=== PATIENT | female | born 1960 | race Caucasian/White ===

== ENCOUNTER 2016-10-01 03:49 | Inpatient (IN) | payer MEDICAID ==
[2016-08-31 13:04] VITALS: Ht 157.5 cm; Wt 59.0 kg
[~2016-10-01] VITALS: Ht 157.5 cm; Wt 59.0 kg
[~2016-10-01 03:49] MED LIST: ASPI-1063 PO; ATEN50TA PO; CYAN10009 PO; FENO160 PO; FERR159T2 PO; FURO-150 PO; FURO40TA5 PO; GLIP10TA11 PO; GLIP10TA74 PO; GLU850 PO; KAY15 PO; METO-304 PO; MULT PO; OMEP20CA4 PO; OMEP40CA PO; OMEP40CA33 PO; POTA8TAB4 PO; PRO40 PO; PROP10TA10 PO; SPIR100T24 PO; SPIR25TA PO; SUCR1TAB78 PO
[2016-10-01 04:05] VITALS: BP 121/71; PULSE 92; RESP 18; TEMP 98.7; O2SAT 100
[2016-10-01 04:20] LABS: BASOPHILS % (AUTO) 0.5 % (0.0-2.0); EOSINOPHILS # (AUTO) 0.2 K/uL (0.0-0.4); EOSINOPHILS % (AUTO) 2.8 % (0.0-4.0); HEMATOCRIT 31.1 % (36-48); HEMOGLOBIN 10.4 g/dL (12.0-16.0); LYMPHOCYTES # (AUTO) 1.2 K/uL (1.0-5.5); LYMPHOCYTES % (AUTO) 18.3 % (20.5-51.5); MEAN CORPUSCULAR HEMOGLOBIN 31 pg (27-31); MEAN CORPUSCULAR HGB CONC 33 % (32-36); MEAN CORPUSCULAR VOLUME 94 fL (79.0-98.0); MONOCYTES # (AUTO) 0.5 K/uL (0.0-1.0); MONOCYTES % (AUTO) 8.4 % (1.7-9.3); NEUTROPHILS # (AUTO) 4.4 K/uL (1.8-7.7); RED BLOOD CELL COUNT(AUTO) 3.31 MIL/uL (4.2-6.2); RED CELL DISTRIBUTION WIDTH 15.8 % (9.0-15.0); WHITE BLOOD COUNT (AUTO) 6.3 K/uL (4.8-10.8)
[2016-10-01 04:35] LABS: CALCIUM 8.9 mg/dL (8.4-11.0); CREATININE 2.62 mg/dL (0.55-1.30); INR 1.1 (0.8-1.2); PROTHROMBIN TIME 12.1 SECS (9.5-12.5)
[2016-10-01 04:40] LABS: ALBUMIN 2.1 g/dL (3.4-4.8); TOTAL BILIRUBIN 0.9 mg/dL (0.0-1.0); TOTAL PROTEIN, SERUM 6.2 g/dL (6.4-8.3)
[2016-10-01 05:01] LABS: POTASSIUM 7.3 mmol/L (3.5-5.1)
[2016-10-01 05:08] LABS: PLATELET COUNT (AUTO) 72 K/uL (130-430)
[2016-10-01] MEDS ORDERED: VANC250C11 IV (05:16)
[2016-10-01 06:00] LABS: BILIRUBIN,URINE 1+ (NEGATIVE); BLOOD, URINE 3+ (NEGATIVE); CLARITY/URINE CLOUDY (CLEAR); COLOR,URINE YELLOW (YELLOW); GLUCOSE,URINE NEGATIVE (NEGATIVE); KETONES,URINE NEGATIVE (NEGATIVE); LEUKOCYTE ESTERASE ,URINE 2+ (NEGATIVE); NITRITE, URINE NEGATIVE (NEGATIVE); PH,URINE 7.5 (5.0-8.0); PROTEIN URINE NEGATIVE (NEGATIVE); UROBILINOGEN,URINE 0.2 (0.2-1.0)
[2016-10-01 06:10] LABS: BACTERIA,URINE MODERATE /HPF (None Seen); MUCUS,URINE None Seen /LPF (None Seen)
[2016-10-01] MEDS ORDERED: SODIUM POLYSTYRENE SULFONATE 15 GM/60 ML UDBTL PO ONE (07:45)
[2016-10-01] MEDS ORDERED: DEXTROSE 50% JECT 50 ML DISP.SYRIN IVP ONE (07:45)
[2016-10-01] MEDS ORDERED: INSULIN REGULAR, HUMAN 100 UNITS/ML, 10 ML VIAL SUBCUT ONE (07:45)
[2016-10-01] MEDS ORDERED: COMMUNICATION ORDER XX ONE ×2 (08:00→17:00)
[2016-10-01] MEDS ORDERED: CALCIUM CHLORIDE 1 GM in NS 100 ML IV ONE (08:30)
[2016-10-01] MEDS: LACTULOSE 20 GM/30 ML UDC PO SCH ×4 (09:30→21:27)
[2016-10-01] MEDS: FUROSEMIDE 40 MG/4 ML VIAL IVP SCH (09:31)
[2016-10-01] MEDS: METOPROLOL SUCCINATE 25 MG TAB.SR.24H (TOPROL XL) PO SCH (09:31)
[2016-10-01 12:00] VITALS: BP 127/73; PULSE 91; RESP 18; TEMP 97.2; O2SAT 100
[2016-10-01 15:53] LABS: CALCIUM 9.3 mg/dL (8.4-11.0); CREATININE 2.82 mg/dL (0.55-1.30); POTASSIUM 4.9 mmol/L (3.5-5.1)
[2016-10-01] MEDS: NACL 0.9% 1,000 ML IV SCH (15:56)
[2016-10-01 16:00] VITALS: BP 118/70; PULSE 50; RESP 18; TEMP 97.2; O2SAT 92
[2016-10-01 16:33] LABS: BLOOD GAS PH 7.204 (7.350-7.450)
[2016-10-01 16:34] LABS: ABG TOTAL HEMOGLOBIN 10.9 G/dL (12.0-18.0); BLOOD GAS BASE EXCESS -19.9 mmol/L (-3.0-3.0); BLOOD GAS COHb% 0.3 % (0.5-1.5); BLOOD GAS HHB 2.2 % (0.0-6.0); BLOOD O2Hb% 97.3 % (94.0-97.0)
[2016-10-01] MEDS: SODIUM BICARBONATE 8.4% JECT 50 MEQ/50 ML SYRINGE IVP SCH ×2 (17:20→21:27)
[2016-10-01 20:00] VITALS: BP 116/63; PULSE 99; RESP 20; TEMP 97.1; O2SAT 99
[2016-10-02 03:45] VITALS: BP 96/59; PULSE 104; RESP 16; TEMP 97.4; O2SAT 100
[2016-10-02 03:49] VITALS: BP 95/55; PULSE 105; RESP 18; TEMP 97.4; O2SAT 93
[2016-10-02 06:35] LABS: INR 1.2 (0.8-1.2); PROTHROMBIN TIME 13.3 SECS (9.5-12.5)
[2016-10-02 06:45] LABS: BASOPHILS % (AUTO) 0.3 % (0.0-2.0); EOSINOPHILS # (AUTO) 0.2 K/uL (0.0-0.4); EOSINOPHILS % (AUTO) 3.9 % (0.0-4.0); HEMATOCRIT 25.1 % (36-48); HEMOGLOBIN 8.4 g/dL (12.0-16.0); LYMPHOCYTES # (AUTO) 1.1 K/uL (1.0-5.5); LYMPHOCYTES % (AUTO) 20.7 % (20.5-51.5); MEAN CORPUSCULAR HEMOGLOBIN 31 pg (27-31); MEAN CORPUSCULAR HGB CONC 34 % (32-36); MEAN CORPUSCULAR VOLUME 93 fL (79.0-98.0); MONOCYTES # (AUTO) 0.6 K/uL (0.0-1.0); NEUTROPHILS # (AUTO) 3.5 K/uL (1.8-7.7); NEUTROPHILS % (AUTO) 64.1 % (40.0-70.0); RED BLOOD CELL COUNT(AUTO) 2.68 MIL/uL (4.2-6.2); RED CELL DISTRIBUTION WIDTH 15.4 % (9.0-15.0); WHITE BLOOD COUNT (AUTO) 5.4 K/uL (4.8-10.8)
[2016-10-02 07:02] LABS: ALBUMIN 1.8 g/dL (3.4-4.8); CALCIUM 8.7 mg/dL (8.4-11.0); CREATININE 2.63 mg/dL (0.55-1.30); POTASSIUM 4.5 mmol/L (3.5-5.1); TOTAL BILIRUBIN 1.4 mg/dL (0.0-1.0); TOTAL PROTEIN, SERUM 5.1 g/dL (6.4-8.3)
[2016-10-02] MEDS: NACL 0.9% 1,000 ML IV SCH (07:51)
[2016-10-02 08:00] VITALS: BP 94/62; PULSE 102; RESP 18; TEMP 99.1; O2SAT 95
[2016-10-02] MEDS: METOPROLOL SUCCINATE 25 MG TAB.SR.24H (TOPROL XL) PO SCH (09:00)
[2016-10-02] MEDS: FUROSEMIDE 40 MG/4 ML VIAL IVP SCH (09:00)
[2016-10-02] MEDS: LACTULOSE 20 GM/30 ML UDC PO SCH ×4 (09:04→20:59)
[2016-10-02 09:26] LABS: PLATELET COUNT (AUTO) 55 K/uL (130-430)
[2016-10-02 12:00] VITALS: BP 105/65; PULSE 80; RESP 20; TEMP 98; O2SAT 98
[2016-10-02 16:00] VITALS: BP 114/72; PULSE 72; RESP 20; TEMP 97.8; O2SAT 99
[2016-10-02] MEDS: SODIUM BICARBONATE 650 MG TABLET PO SCH (20:55)
[2016-10-03] VITALS (7 sets, daily range): BP systolic 85–126; BP diastolic 52–69; PULSE 72–99; RESP 16–18; TEMP 97–98.4; O2SAT 96–100
[2016-10-03 06:40] LABS: BASOPHILS % (AUTO) 0.3 % (0.0-2.0); EOSINOPHILS # (AUTO) 0.1 K/uL (0.0-0.4); EOSINOPHILS % (AUTO) 3.1 % (0.0-4.0); HEMATOCRIT 22.9 % (36-48); HEMOGLOBIN 7.7 g/dL (12.0-16.0); LYMPHOCYTES % (AUTO) 21.5 % (20.5-51.5); MEAN CORPUSCULAR HEMOGLOBIN 32 pg (27-31); MEAN CORPUSCULAR HGB CONC 34 % (32-36); MEAN CORPUSCULAR VOLUME 94 fL (79.0-98.0); MONOCYTES # (AUTO) 0.5 K/uL (0.0-1.0); NEUTROPHILS # (AUTO) 3.2 K/uL (1.8-7.7); NEUTROPHILS % (AUTO) 65.1 % (40.0-70.0); RED BLOOD CELL COUNT(AUTO) 2.44 MIL/uL (4.2-6.2); RED CELL DISTRIBUTION WIDTH 15.6 % (9.0-15.0); WHITE BLOOD COUNT (AUTO) 4.8 K/uL (4.8-10.8)
[2016-10-03 07:20] LABS: CALCIUM 8.2 mg/dL (8.4-11.0); POTASSIUM 4.5 mmol/L (3.5-5.1)
[2016-10-03 07:21] LABS: ALBUMIN 1.7 g/dL (3.4-4.8); CREATININE 2.6 mg/dL (0.55-1.30); THYROID STIMULATING HORMONE 1.47 uIu/mL (0.34-4.82); TOTAL BILIRUBIN 1.4 mg/dL (0.0-1.0)
[2016-10-03 07:53] LABS: PLATELET COUNT (AUTO) 48 K/uL (130-430)
[2016-10-03] MEDS: FUROSEMIDE 40 MG/4 ML VIAL IVP SCH (09:00)
[2016-10-03] MEDS: METOPROLOL SUCCINATE 25 MG TAB.SR.24H (TOPROL XL) PO SCH (09:00)
[2016-10-03] MEDS: SODIUM BICARBONATE 650 MG TABLET PO SCH ×3 (09:08→22:52)
[2016-10-04] MEDS ORDERED: LACTULOSE 20 GM/30 ML UDC PO SCH (09:00)
== END 2016-10-04 00:10 | disposition home or self-care (01) | DRG 279 ==
LOC: SED 03:49 → STU 06:32
PROVIDERS: ADMIT Internal Medicine Hospice and Palliative Medicine; ATTEND Internal Medicine Hospice and Palliative Medicine
PROC: 30233N1 Transfusion of Nonautologous Red Blood Cells into Peripheral Vein, Percutaneous Approach (ICD-10-PCS; principal; 2016-10-03)
PROC: 0W9G3ZZ Drainage of Peritoneal Cavity, Percutaneous Approach (ICD-10-PCS; 2016-10-03)
DX: K72.90 Hepatic failure, unspecified without coma (principal); K76.7 Hepatorenal syndrome; N17.9 Acute kidney failure, unspecified; L03.115 Cellulitis of right lower limb; E11.22 Type 2 diabetes mellitus with diabetic chronic kidney disease; E87.2 Acidosis; E87.5 Hyperkalemia; N18.3 Chronic kidney disease, stage 3 (moderate); K70.31 Alcoholic cirrhosis of liver with ascites; F10.10 Alcohol abuse, uncomplicated; I12.9 Hypertensive chronic kidney disease with stage 1 through stage 4 chronic kidney disease, or unspecified chronic kidney disease; D63.8 Anemia in other chronic diseases classified elsewhere; Z88.2 Allergy status to sulfonamides; Z79.899 Other long term (current) drug therapy
CPT/HCPCS: 36415; 36600; 49083; 71010; 76770; 80048; 80053; 81000-TC; 82140-TC; 82803-TC; 83605; 83690-TC; 83735-TC; 83874; 83880; 84100-TC; 84443-TC; 84484; 85025; 85610-TC; 85730-TC; 86870; 86886; 86900; 86901; 86920; 87040-TC; 87081; 87086; 87186-TC; 93005; 93306; 99285; C1729; J1815; J1940; J7040; J7060; P9021

== ENCOUNTER 2016-10-13 22:07 | Inpatient (IN) | payer MEDICAID ==
[~2016-10-13] VITALS: Ht 160 cm; Wt 65.8 kg
[2016-10-13] MEDS: SODIUM POLYSTYRENE SULFONATE 15 GM/60 ML UDBTL PO ONE (01:30)
[~2016-10-13 22:07] MED LIST changes: +VANC250C11 IV
[2016-10-13 22:10] VITALS: PULSE 79; RESP 19; TEMP 98; O2SAT 94
[2016-10-13] MEDS ORDERED: NORMAL SALINE 5 ML DISP.SYRIN IVF ONE (22:15)
[2016-10-13 22:44] LABS: BASOPHILS % (AUTO) 0.5 % (0.0-2.0); EOSINOPHILS # (AUTO) 0.2 K/uL (0.0-0.4); EOSINOPHILS % (AUTO) 3.3 % (0.0-4.0); HEMATOCRIT 30.8 % (36-48); HEMOGLOBIN 10.2 g/dL (12.0-16.0); LYMPHOCYTES # (AUTO) 1.6 K/uL (1.0-5.5); LYMPHOCYTES % (AUTO) 21.8 % (20.5-51.5); MEAN CORPUSCULAR HEMOGLOBIN 31 pg (27-31); MEAN CORPUSCULAR HGB CONC 33 % (32-36); MEAN CORPUSCULAR VOLUME 94 fL (79.0-98.0); MONOCYTES # (AUTO) 0.7 K/uL (0.0-1.0); MONOCYTES % (AUTO) 9.1 % (1.7-9.3); NEUTROPHILS # (AUTO) 4.8 K/uL (1.8-7.7); NEUTROPHILS % (AUTO) 65.3 % (40.0-70.0); RED CELL DISTRIBUTION WIDTH 15.9 % (9.0-15.0); WHITE BLOOD COUNT (AUTO) 7.3 K/uL (4.8-10.8)
[2016-10-13 22:50] LABS: ANION GAP 15 (5-15); CALCIUM 8.4 mg/dL (8.4-11.0); CHLORIDE 108 mmol/L (98-107); CREATININE 4.05 mg/dL (0.55-1.30); GLUCOSE 177 mg/dL (70-99); SODIUM SERUM 131 mmol/L (136-145)
[2016-10-13 22:53] LABS: GFR AFRICAN AMERICAN 15 mL/min (>90)
[2016-10-13 22:56] LABS: PLATELET COUNT (AUTO) 66 K/uL (130-430)
[2016-10-13 22:59] LABS: ASPARTATE AMINOTRANSFERASE 33 U/L (10-37); TOTAL BILIRUBIN 0.9 mg/dL (0.0-1.0)
[2016-10-13 23:00] LABS: ACETAMINOPHEN 2 ug/mL (1-30); ALANINE AMINOTRANSFERASE 34 U/L (12-78); ALBUMIN 1.9 g/dL (3.4-4.8); ALCOHOL, BLOOD < 3 mg/dL (<10); SALICYLATE < 1 mg/dL (3-30); TOTAL PROTEIN, SERUM 5.6 g/dL (6.4-8.3)
[2016-10-13 23:02] LABS: POTASSIUM 5.9 mmol/L (3.5-5.1)
[2016-10-13 23:06] LABS: UREA NITROGEN, BLOOD 116 mg/dL (8-21)
[2016-10-13] MEDS ORDERED: FUROSEMIDE 40 MG/4 ML VIAL IVP ONE (23:45)
[2016-10-13] MEDS ORDERED: LACTULOSE 20 GM/30 ML UDC PO ONE (23:45)
[2016-10-13] MEDS ORDERED: ONDANSETRON HCL 4 MG/2 ML VIAL IVP ONE (23:45)
[2016-10-14] VITALS (10 sets, daily range): BP systolic 102–110; BP diastolic 65–80; PULSE 65–103; RESP 17–18; TEMP 96.5–98; O2SAT 97–100
[2016-10-14] MEDS ORDERED: SODIUM BICARBONATE 8.4% JECT 50 MEQ/50 ML SYRINGE IVP ONE
[2016-10-14] MEDS ORDERED: SODIUM BICARBONATE 8.4% JECT 50 MEQ/50 ML SYRINGE ONE (00:14)
[2016-10-14] MEDS ORDERED: NACL 0.9% 1,000 ML IV ONE (00:15)
[2016-10-14] MEDS ORDERED: DEXTROSE 50% JECT 50 ML DISP.SYRIN IVP ONE (00:30)
[2016-10-14] MEDS ORDERED: INSULIN REGULAR, HUMAN 10 UNITS/0.1 ML INJ IVP ONE (00:30)
[2016-10-14] MEDS: SODIUM POLYSTYRENE SULFONATE 15 GM/60 ML UDBTL PO ONE (01:02)
[2016-10-14 01:24] LABS: BARBITURATE, URINE NEGATIVE (NEG <=200); BENZODIAZEPINE, URINE NEGATIVE (NEG <=150); CANNABINOID, URINE NEGATIVE (NEG <=50); COCAINE, URINE NEGATIVE (NEG <=150); METHAMPHETAMINES SCREEN,URINE NEGATIVE (NEG <=500); OPIATE, URINE NEGATIVE (NEG <=100); PHENCYCLIDINE SCREEN,URINE NEGATIVE (NEG <=25); UR TRICYCLIC ANTIDEPRESSANTS NEGATIVE (NEG <=300); URINE AMPHETAMINE NEGATIVE (NEG <=500); URINE METHADONE NEGATIVE (NEG <=200); URINE OXYCODONE SCREEN NEGATIVE (NEG <=100); URINE PROPOXYPHENE SCREEN NEGATIVE (NEG <=300)
[2016-10-14] MEDS ORDERED: SODIUM POLYSTYRENE SULFONATE 15 GM/60 ML UDBTL ONE (01:27)
[2016-10-14] MEDS ORDERED: GASTROGRAFIN 120 ML ONE (01:28)
[2016-10-14] MEDS: D5NS 1,000 ML IV SCH ×2 (03:31→08:55)
[2016-10-14] MEDS: LACTULOSE 20 GM/30 ML UDC NG SCH ×4 (05:35→23:42)
[2016-10-14] MEDS ORDERED: SODIUM POLYSTYRENE SULFONATE 15 GM/60 ML UDBTL NG SCH (06:00)
[2016-10-14] MEDS ORDERED: ONDANSETRON HCL 4 MG/2 ML VIAL IVP PRN (06:15)
[2016-10-14] MEDS ORDERED: PANTOPRAZOLE SODIUM 40 MG/VIAL (PROTONIX) IVP SCH (07:00)
[2016-10-14] MEDS ORDERED: NS 500 ML IV ONE (07:00)
[2016-10-14 07:42] LABS: BASOPHILS % (AUTO) 0.2 % (0.0-2.0); EOSINOPHILS % (AUTO) 0.1 % (0.0-4.0); HEMATOCRIT 28.8 % (36-48); HEMOGLOBIN 9.9 g/dL (12.0-16.0); LYMPHOCYTES # (AUTO) 0.4 K/uL (1.0-5.5); LYMPHOCYTES % (AUTO) 7.1 % (20.5-51.5); MEAN CORPUSCULAR HEMOGLOBIN 31 pg (27-31); MEAN CORPUSCULAR HGB CONC 34 % (32-36); MEAN CORPUSCULAR VOLUME 90 fL (79.0-98.0); MONOCYTES # (AUTO) 0.3 K/uL (0.0-1.0); MONOCYTES % (AUTO) 5.6 % (1.7-9.3); NEUTROPHILS # (AUTO) 4.7 K/uL (1.8-7.7); RED BLOOD CELL COUNT(AUTO) 3.21 MIL/uL (4.2-6.2); RED CELL DISTRIBUTION WIDTH 15.6 % (9.0-15.0); WHITE BLOOD COUNT (AUTO) 5.4 K/uL (4.8-10.8)
[2016-10-14 07:46] LABS: PLATELET COUNT (AUTO) 47 K/uL (130-430)
[2016-10-14 07:55] LABS: ALBUMIN 1.8 g/dL (3.4-4.8); CALCIUM 8.3 mg/dL (8.4-11.0); CREATININE 4.1 mg/dL (0.55-1.30); POTASSIUM 4.1 mmol/L (3.5-5.1); TOTAL BILIRUBIN 0.9 mg/dL (0.0-1.0); TOTAL PROTEIN, SERUM 5.6 g/dL (6.4-8.3)
[2016-10-14] MEDS: PANTOPRAZOLE SODIUM 40 MG/VIAL (PROTONIX) IVP SCH ×2 (08:55→21:47)
[2016-10-14 10:34] LABS: INR 1.2 (0.8-1.2); PROTHROMBIN TIME 12.7 SECS (9.5-12.5)
[2016-10-14] MEDS: LORazepam 2 MG/ML VIAL IVP PRN ×2 (10:47→17:43)
[2016-10-14 12:06] LABS: HEMATOCRIT 28.2 % (36-48); HEMOGLOBIN 9.6 g/dL (12.0-16.0)
[2016-10-14 18:18] LABS: HEMOGLOBIN 9.6 g/dL (12.0-16.0)
[2016-10-14] MEDS: SODIUM BICARBONATE 8.4% JECT 150 MEQ in D5W 1,000 ML IV SCH (21:50)
[2016-10-15] MEDS: LORazepam 2 MG/ML VIAL IVP PRN ×3 (03:19→14:06)
[2016-10-15 03:57] VITALS: BP 125/69; PULSE 110; RESP 18; TEMP 97.4; O2SAT 95
[2016-10-15] MEDS: SODIUM BICARBONATE 8.4% JECT 150 MEQ in D5W 1,000 ML IV SCH ×2 (04:37→09:42)
[2016-10-15] MEDS: LACTULOSE 20 GM/30 ML UDC NG SCH ×3 (06:07→17:24)
[2016-10-15 06:51] LABS: CALCIUM 8.6 mg/dL (8.4-11.0); POTASSIUM 3.4 mmol/L (3.5-5.1)
[2016-10-15 06:52] LABS: ALBUMIN 1.8 g/dL (3.4-4.8); CREATININE 4.28 mg/dL (0.55-1.30); TOTAL BILIRUBIN 1.2 mg/dL (0.0-1.0); TOTAL PROTEIN, SERUM 5.2 g/dL (6.4-8.3)
[2016-10-15] MEDS ORDERED: FUROSEMIDE 40 MG/4 ML VIAL IVP ONE (07:00)
[2016-10-15 07:05] LABS: BASOPHILS % (AUTO) 0.2 % (0.0-2.0); EOSINOPHILS # (AUTO) 0.1 K/uL (0.0-0.4); EOSINOPHILS % (AUTO) 0.9 % (0.0-4.0); HEMATOCRIT 28.3 % (36-48); HEMOGLOBIN 9.3 g/dL (12.0-16.0); LYMPHOCYTES # (AUTO) 0.7 K/uL (1.0-5.5); LYMPHOCYTES % (AUTO) 10.5 % (20.5-51.5); MEAN CORPUSCULAR HEMOGLOBIN 31 pg (27-31); MEAN CORPUSCULAR HGB CONC 33 % (32-36); MEAN CORPUSCULAR VOLUME 93 fL (79.0-98.0); MONOCYTES # (AUTO) 0.6 K/uL (0.0-1.0); MONOCYTES % (AUTO) 8.9 % (1.7-9.3); RED BLOOD CELL COUNT(AUTO) 3.04 MIL/uL (4.2-6.2); RED CELL DISTRIBUTION WIDTH 15.4 % (9.0-15.0); WHITE BLOOD COUNT (AUTO) 6.4 K/uL (4.8-10.8)
[2016-10-15 07:34] LABS: PLATELET COUNT (AUTO) 42 K/uL (130-430)
[2016-10-15 07:35] VITALS: BP 149/81; PULSE 120; RESP 20; TEMP 97.4; O2SAT 99
[2016-10-15] MEDS: PANTOPRAZOLE SODIUM 40 MG/VIAL (PROTONIX) IVP SCH (08:35)
[2016-10-15 10:00] VITALS: BP 149/81; PULSE 120; RESP 20; TEMP 97.4; O2SAT 99
[2016-10-15 11:05] VITALS: BP 124/79; PULSE 112; RESP 18; TEMP 98.1; O2SAT 98
[2016-10-15 11:14] LABS: NEUTROPHILS % (AUTO) 79.5 % (40.0-70.0)
[2016-10-15 17:20] VITALS: BP 120/75; PULSE 105; RESP 18; TEMP 97.7; O2SAT 98
[2016-10-15] MEDS ORDERED: HEPARIN SODIUM,PORCINE 5000 UNITS/ML VIAL MC SCH (18:15)
[2016-10-15] MEDS ORDERED: HEPARIN SODIUM,PORCINE 5000 UNITS/ML VIAL ONE (18:21)
[2016-10-15 18:32] LABS: HEMATOCRIT 27.9 % (36-48); HEMOGLOBIN 9.5 g/dL (12.0-16.0)
[2016-10-15] MEDS ORDERED: LORazepam 2 MG/ML VIAL IVP SCH (19:15)
[2016-10-15 20:03] VITALS: BP 113/70; PULSE 105; RESP 16; TEMP 95.6
[2016-10-16] VITALS (7 sets, daily range): BP systolic 90–107; BP diastolic 55–74; PULSE 74–104; RESP 16–20; TEMP 96.8–98.3; O2SAT 96–99; Ht 160 cm; Wt 65.8 kg
[2016-10-16] MEDS: SODIUM BICARBONATE 8.4% JECT 150 MEQ in D5W 1,000 ML IV SCH ×4 (00:10→23:46)
[2016-10-16] MEDS: LACTULOSE 20 GM/30 ML UDC NG SCH ×4 (00:34→18:00)
[2016-10-16] MEDS: LORazepam 2 MG/ML VIAL IVP PRN (00:35)
[2016-10-16] MEDS: PANTOPRAZOLE SODIUM 40 MG/VIAL (PROTONIX) IVP SCH ×3 (00:35→21:11)
[2016-10-16 00:54] LABS: HEMATOCRIT 28.3 % (36-48); HEMOGLOBIN 9.5 g/dL (12.0-16.0)
[2016-10-16 06:58] LABS: HEMATOCRIT 26.4 % (36-48); HEMOGLOBIN 8.9 g/dL (12.0-16.0)
[2016-10-16 07:20] LABS: ALBUMIN 1.8 g/dL (3.4-4.8); BILIRUBIN,DIRECT 0.8 mg/dL (0.0-0.3)
[2016-10-16] MEDS ORDERED: TUBERCULIN,PURIF.PROT.DERIV. 0.1 ML SYR ID ONE (13:00)
[2016-10-16 13:12] LABS: HEMATOCRIT 24.8 % (36-48)
[2016-10-16 13:13] LABS: HEMOGLOBIN 8.2 g/dL (12.0-16.0)
[2016-10-16 13:20] LABS: CREATININE 3.78 mg/dL (0.55-1.30); POTASSIUM 3.1 mmol/L (3.5-5.1)
[2016-10-16 18:12] LABS: HEMATOCRIT 25.1 % (36-48); HEMOGLOBIN 8.5 g/dL (12.0-16.0)
[2016-10-17] VITALS: BP 93/68; PULSE 98; RESP 17; TEMP 97.2; O2SAT 96
[2016-10-17] MEDS: LACTULOSE 20 GM/30 ML UDC NG SCH ×4 (00:25→17:44)
[2016-10-17 04:22] VITALS: BP 121/65; PULSE 90; RESP 18; TEMP 97.6; O2SAT 95
[2016-10-17 08:15] VITALS: BP 89/58; PULSE 98; RESP 16; TEMP 98.2
[2016-10-17] MEDS: PANTOPRAZOLE SODIUM 40 MG/VIAL (PROTONIX) IVP SCH ×2 (08:37→23:34)
[2016-10-17 12:00] VITALS: BP 81/49; PULSE 99; RESP 16; TEMP 98; O2SAT 100
[2016-10-17 12:12] LABS: HEPATITIS A AB, IgM Negative (Negative); HEPATITIS B CORE AB, IgM Negative (Negative); HEPATITIS B SURFACE AG Negative (Negative)
[2016-10-17 16:00] VITALS: BP 82/47; PULSE 101; RESP 18; TEMP 97.5; O2SAT 96
[2016-10-17 19:45] VITALS: BP 92/53; PULSE 104; RESP 18; TEMP 98.1; O2SAT 100
[2016-10-17] MEDS: SODIUM BICARBONATE 8.4% JECT 150 MEQ in D5W 1,000 ML IV SCH (23:37)
[2016-10-18] MEDS: LACTULOSE 20 GM/30 ML UDC NG SCH ×5 (00:09→23:54)
[2016-10-18 00:57] VITALS: BP 102/62; PULSE 86; RESP 18; TEMP 98.6; O2SAT 96
[2016-10-18] MEDS ORDERED: MORPHINE 2 MG/ML INJ. SYRINGE IVP PRN (04:45)
[2016-10-18 05:44] VITALS: BP 90/52; PULSE 98; RESP 18; TEMP 98.4; O2SAT 95
[2016-10-18] MEDS: ACETAMINOPHEN 325 MG TABLET PO PRN (06:42)
[2016-10-18 06:45] LABS: BASOPHILS % (AUTO) 0.4 % (0.0-2.0); EOSINOPHILS # (AUTO) 0.3 K/uL (0.0-0.4); EOSINOPHILS % (AUTO) 3.3 % (0.0-4.0); HEMATOCRIT 24.1 % (36-48); HEMOGLOBIN 8.2 g/dL (12.0-16.0); LYMPHOCYTES # (AUTO) 0.8 K/uL (1.0-5.5); LYMPHOCYTES % (AUTO) 10.2 % (20.5-51.5); MEAN CORPUSCULAR HEMOGLOBIN 31 pg (27-31); MEAN CORPUSCULAR HGB CONC 34 % (32-36); MEAN CORPUSCULAR VOLUME 92 fL (79.0-98.0); MONOCYTES # (AUTO) 0.7 K/uL (0.0-1.0); MONOCYTES % (AUTO) 8.8 % (1.7-9.3); NEUTROPHILS # (AUTO) 6.2 K/uL (1.8-7.7); NEUTROPHILS % (AUTO) 77.3 % (40.0-70.0); RED BLOOD CELL COUNT(AUTO) 2.62 MIL/uL (4.2-6.2); RED CELL DISTRIBUTION WIDTH 15.6 % (9.0-15.0)
[2016-10-18 07:12] LABS: ALBUMIN 1.3 g/dL (3.4-4.8); CALCIUM 7.1 mg/dL (8.4-11.0); CREATININE 3.82 mg/dL (0.55-1.30); TOTAL BILIRUBIN 1.7 mg/dL (0.0-1.0); TOTAL PROTEIN, SERUM 4.4 g/dL (6.4-8.3)
[2016-10-18 07:17] LABS: PLATELET COUNT (AUTO) 30 K/uL (130-430)
[2016-10-18 07:22] LABS: POTASSIUM 2.6 mmol/L (3.5-5.1)
[2016-10-18] MEDS ORDERED: COMMUNICATION ORDER XX ONE (08:00)
[2016-10-18] MEDS: PANTOPRAZOLE SODIUM 40 MG/VIAL (PROTONIX) IVP SCH ×2 (09:06→21:41)
[2016-10-18] MEDS: POTASSIUM CHLORIDE 20 MEQ TAB.PRT.SR PO SCH ×2 (09:06→13:57)
[2016-10-18 12:00] VITALS: BP 74/43; PULSE 98; RESP 21; TEMP 98.2; O2SAT 97
[2016-10-18 15:21] LABS: EOSINOPHILS # (AUTO) 0.2 K/uL (0.0-0.4); LYMPHOCYTES # (AUTO) 0.6 K/uL (1.0-5.5); MONOCYTES # (AUTO) 0.1 K/uL (0.0-1.0)
[2016-10-18 15:27] LABS: BASOPHILS % (AUTO) 0.6 % (0.0-2.0); EOSINOPHILS % (AUTO) 3.5 % (0.0-4.0); HEMATOCRIT 24.7 % (36-48); HEMOGLOBIN 8.4 g/dL (12.0-16.0); LYMPHOCYTES % (AUTO) 10.1 % (20.5-51.5); MEAN CORPUSCULAR HEMOGLOBIN 31 pg (27-31); MEAN CORPUSCULAR HGB CONC 34 % (32-36); MEAN CORPUSCULAR VOLUME 91 fL (79.0-98.0); MONOCYTES % (AUTO) 1.2 % (1.7-9.3); NEUTROPHILS # (AUTO) 5.2 K/uL (1.8-7.7); NEUTROPHILS % (AUTO) 84.6 % (40.0-70.0); RED BLOOD CELL COUNT(AUTO) 2.71 MIL/uL (4.2-6.2); RED CELL DISTRIBUTION WIDTH 15.6 % (9.0-15.0); WHITE BLOOD COUNT (AUTO) 6.1 K/uL (4.8-10.8)
[2016-10-18 15:28] LABS: PLATELET COUNT (AUTO) 56 K/uL (130-430)
[2016-10-18] MEDS ORDERED: HEPARIN SODIUM,PORCINE 5000 UNITS/ML VIAL MC ONE (15:30)
[2016-10-18 16:00] VITALS: BP 94/49; PULSE 94; RESP 21; TEMP 97; O2SAT 98
[2016-10-18 19:45] VITALS: PULSE 105; RESP 18; TEMP 97.6; O2SAT 98
[2016-10-18 21:00] VITALS: BP 78/47; PULSE 105; RESP 18; TEMP 97.6
[2016-10-18] MEDS ORDERED: ALBUMIN HUMAN 25% 100 ML IV ONE (21:15)
[2016-10-18] MEDS ORDERED: SIMETHICONE 80 MG TAB.CHEW PO PRN (21:15)
[2016-10-18] MEDS: SODIUM BICARBONATE 8.4% JECT 150 MEQ in D5W 1,000 ML IV SCH ×2 (21:42→23:56)
[2016-10-18] MEDS: RIFAXIMIN 200 MG TABLET PO SCH (23:54)
[2016-10-19] VITALS (8 sets, daily range): BP systolic 85–119; BP diastolic 42–60; PULSE 90–102; RESP 18–19; TEMP 96.6–97.8; O2SAT 93–98
[2016-10-19] MEDS: LACTULOSE 20 GM/30 ML UDC NG SCH ×4 (05:44→23:31)
[2016-10-19] MEDS: PANTOPRAZOLE SODIUM 40 MG/VIAL (PROTONIX) IVP SCH ×2 (09:33→22:28)
[2016-10-19] MEDS: RIFAXIMIN 200 MG TABLET PO SCH ×2 (09:33→20:48)
[2016-10-19] MEDS: SODIUM BICARBONATE 8.4% JECT 150 MEQ in D5W 1,000 ML IV SCH ×2 (12:38→22:32)
[2016-10-19] MEDS ORDERED: ALPRAZolam 0.25 MG TABLET PO ONE (14:45)
[2016-10-19] MEDS ORDERED: traMADol HCL HCL 50 MG TABLET (ULTRAM) PO ONE (19:15)
[2016-10-20] VITALS: BP 81/53; PULSE 94; RESP 17; TEMP 97.6; O2SAT 93
[2016-10-20] MEDS: ACETAMINOPHEN 325 MG TABLET PO PRN ×3 (01:00→13:52)
[2016-10-20] MEDS: ALBUMIN HUMAN 25% 100 ML IV PRN ×2 (01:22→05:14)
[2016-10-20 04:00] VITALS: BP 89/56; PULSE 96; RESP 18; TEMP 98; O2SAT 95
[2016-10-20] MEDS: LACTULOSE 20 GM/30 ML UDC NG SCH ×3 (05:15→17:38)
[2016-10-20 08:08] VITALS: BP 90/49; PULSE 92; RESP 16; TEMP 97; O2SAT 94
[2016-10-20 08:40] LABS: EOSINOPHILS # (AUTO) 0.2 K/uL (0.0-0.4); LYMPHOCYTES # (AUTO) 0.8 K/uL (1.0-5.5); MONOCYTES # (AUTO) 0.7 K/uL (0.0-1.0); NEUTROPHILS # (AUTO) 3.9 K/uL (1.8-7.7); RED CELL DISTRIBUTION WIDTH 15.5 % (9.0-15.0); WHITE BLOOD COUNT (AUTO) 5.6 K/uL (4.8-10.8)
[2016-10-20 08:44] LABS: BASOPHILS % (AUTO) 0.4 % (0.0-2.0); EOSINOPHILS % (AUTO) 3.7 % (0.0-4.0); HEMOGLOBIN 7.1 g/dL (12.0-16.0); MEAN CORPUSCULAR HEMOGLOBIN 32 pg (27-31); MEAN CORPUSCULAR HGB CONC 35 % (32-36); MEAN CORPUSCULAR VOLUME 90 fL (79.0-98.0); MONOCYTES % (AUTO) 12.4 % (1.7-9.3); NEUTROPHILS % (AUTO) 69.5 % (40.0-70.0); RED BLOOD CELL COUNT(AUTO) 2.24 MIL/uL (4.2-6.2)
[2016-10-20 08:58] LABS: CALCIUM 7.3 mg/dL (8.4-11.0); CREATININE 3.82 mg/dL (0.55-1.30); POTASSIUM 3.4 mmol/L (3.5-5.1)
[2016-10-20 08:59] LABS: HEMATOCRIT 20.1 % (36-48)
[2016-10-20 09:00] LABS: PLATELET COUNT (AUTO) 26 K/uL (130-430)
[2016-10-20 09:03] LABS: ALBUMIN 2.8 g/dL (3.4-4.8); TOTAL BILIRUBIN 2.3 mg/dL (0.0-1.0)
[2016-10-20] MEDS: PANTOPRAZOLE SODIUM 40 MG/VIAL (PROTONIX) IVP SCH (09:32)
[2016-10-20] MEDS: RIFAXIMIN 200 MG TABLET PO SCH (09:32)
[2016-10-20] MEDS: SODIUM BICARBONATE 8.4% JECT 150 MEQ in D5W 1,000 ML IV SCH ×2 (11:30→14:39)
[2016-10-20 12:00] VITALS: BP 83/46; PULSE 94; RESP 16; TEMP 97.8; O2SAT 96
[2016-10-20 14:00] VITALS: BP 91/50; PULSE 88; RESP 16; TEMP 97.6
[2016-10-20 19:42] LABS: HEMATOCRIT 31.1 % (36-48); HEMOGLOBIN 10.3 g/dL (12.0-16.0)
[2016-10-20 19:47] VITALS: BP 90/66; PULSE 93; RESP 18; TEMP 96.6; O2SAT 98
== END 2016-10-20 20:25 | disposition home health service (06) | DRG 950 ==
LOC: SED 22:07 → STU 10-14 01:50 → SMU 10-15 15:38
PROVIDERS: ADMIT Internal Medicine Hospice and Palliative Medicine; ATTEND Internal Medicine Hospice and Palliative Medicine
PROC: 02HV33Z Insertion of Infusion Device into Superior Vena Cava, Percutaneous Approach (ICD-10-PCS; 2016-10-15)
PROC: B548ZZA Ultrasonography of Superior Vena Cava, Guidance (ICD-10-PCS; 2016-10-15)
PROC: 5A1D60Z (ICD-10-PCS; 2016-10-15)
PROC: 02H633Z Insertion of Infusion Device into Right Atrium, Percutaneous Approach (ICD-10-PCS; 2016-10-18)
PROC: B244ZZZ Ultrasonography of Right Heart (ICD-10-PCS; 2016-10-18)
PROC: 30233R1 Transfusion of Nonautologous Platelets into Peripheral Vein, Percutaneous Approach (ICD-10-PCS; 2016-10-18)
PROC: 06PYX3Z Removal of Infusion Device from Lower Vein, External Approach (ICD-10-PCS; 2016-10-18)
PROC: 0W9G3ZZ Drainage of Peritoneal Cavity, Percutaneous Approach (ICD-10-PCS; principal; 2016-10-19)
PROC: BW40ZZZ Ultrasonography of Abdomen (ICD-10-PCS; 2016-10-19)
PROC: 30233N1 Transfusion of Nonautologous Red Blood Cells into Peripheral Vein, Percutaneous Approach (ICD-10-PCS; 2016-10-20)
DX: I13.11 Hypertensive heart and chronic kidney disease without heart failure, with stage 5 chronic kidney disease, or end stage renal disease (principal); K72.00 Acute and subacute hepatic failure without coma; K76.7 Hepatorenal syndrome; N17.9 Acute kidney failure, unspecified; E87.2 Acidosis; D69.6 Thrombocytopenia, unspecified; N18.6 End stage renal disease; E87.1 Hypo-osmolality and hyponatremia; K70.31 Alcoholic cirrhosis of liver with ascites; E87.5 Hyperkalemia; R13.10 Dysphagia, unspecified; F10.10 Alcohol abuse, uncomplicated; R39.2 Extrarenal uremia; E11.9 Type 2 diabetes mellitus without complications; D63.8 Anemia in other chronic diseases classified elsewhere; Z88.2 Allergy status to sulfonamides; Z79.899 Other long term (current) drug therapy
CPT/HCPCS: 36415; 49083; 71010; 76770; 80048; 80053; 80074; 80076; 80307; 82140-TC; 85018-TC; 85025; 85610-TC; 86580; 86870; 86886; 86900; 86901; 86905; 86920; 87081; 87230-TC; 90935; 90937; 93005; 96374; 96375; 97110-GP; 97116-GP; 97530-GP; 99291; C1729; C1751; C9113; G0480; G0481; G0482; J1644; J1815; J1940; J2060; J2270; J2405; J7030; J7040; J7042; J7050; J7060; P9021; P9034; P9046; Q9963

== ENCOUNTER 2016-10-24 16:12 | Emergency (ER) | payer MEDICAID ==
[2016-10-16 16:14] VITALS: Ht 157.5 cm; Wt 79.8 kg
[~2016-10-24] VITALS: Ht 157.5 cm; Wt 79.8 kg
[2016-10-24 16:15] VITALS: BP 97/75; PULSE 85; RESP 16; TEMP 98.5; O2SAT 99
--- NOTE | 2016-10-24 16:15 | NUR ---
Patient triaged and placed in waiting room. VSS and patient appears in no acute distress at this time. Accompanied by son, awaiting available bed, and MD notified of need for MSE.
--- NOTE | 2016-10-24 17:25 | NUR ---
Patient in stable condition, alert and oriented x4. Visitor present. Patient states was at dialysis today and they directed her to come to ER due to noah catheter bleeding. Patient states dialysis was completed. Patient and visitor state that they only saw small amount of blood, denies any saturation of dressing. Small amount of dried blood noted around noah catheter, no redness or swelling, no other drainage noted. Patient denies pain at site. States dressing to noah catheter was changed today, dry and intact with small amount of dried blood. No other complaints/injuries per patient or noted.
--- NOTE | 2016-10-24 17:30 | NUR ---
Eufemia ADKINS at bedside.
--- NOTE | 2016-10-24 18:10 | NUR ---
Patient does not wish to proceed with medical care recommended by Eufemia ADKINS. Eufemia PRODUCT DESIGN SPECIALIST gave patient information related to possible complications, up to and including , which could occur as a result of leaving hospital at this time. Patient verbalizes understanding of risks involved leaving against medical advice. Patient has signed AMA form.
== END 2016-10-24 18:33 | disposition left against medical advice (07) ==
LOC: SED 16:12
DX: Z45.2 Encounter for adjustment and management of vascular access device (principal); I12.0 Hypertensive chronic kidney disease with stage 5 chronic kidney disease or end stage renal disease; N18.6 End stage renal disease; E11.22 Type 2 diabetes mellitus with diabetic chronic kidney disease; K70.30 Alcoholic cirrhosis of liver without ascites; F10.20 Alcohol dependence, uncomplicated; Z86.2 Personal history of diseases of the blood and blood-forming organs and certain disorders involving the immune mechanism; Z99.2 Dependence on renal dialysis; Z88.2 Allergy status to sulfonamides
CPT/HCPCS: 99281

== ENCOUNTER 2016-11-07 06:30 | Inpatient (IN) | payer MEDICAID ==
[2016-10-16 16:14] VITALS: Ht 157.5 cm; Wt 68.0 kg
[2016-11-07] VITALS (8 sets, daily range): BP systolic 62–116; BP diastolic 32–77; PULSE 92–105; RESP 16–27; TEMP 96.4–97.1; O2SAT 95–99
[~2016-11-07] VITALS: Ht 157.5 cm; Wt 68.0 kg
--- NOTE | 2016-11-07 06:30 | NUR ---
Patient to ER bed 08 to gown for evaluation. Side rails up. Report given to Dayshift Nurses.
--- NOTE | 2016-11-07 06:40 | NUR ---
ER at bedside examining patient.
[2016-11-07] MEDS ORDERED: NACL 0.9% 1,000 ML IV ONE ×2 (07:01→09:45)
--- NOTE | 2016-11-07 07:10 | NUR ---
Assumed care,pt AAOx4.Pt c/o abd pain and nausea.
[2016-11-07] MEDS ORDERED: KETOROLAC TROMETHAMINE 30 MG VIAL IVP ONE (07:15)
[2016-11-07] MEDS ORDERED: ONDANSETRON HCL 4 MG/2 ML VIAL IVP ONE (07:15)
--- NOTE | 2016-11-07 07:15 | NUR ---
Pt h/o dialysis T,TH,SAT and paracentisis M,W,F
--- NOTE | 2016-11-07 07:20 | NUR ---
Pt tolerated medication well.
[2016-11-07 07:47] LABS: BASOPHILS # (AUTO) 0.1 K/uL (0.0-0.2); BASOPHILS % (AUTO) 0.9 % (0.0-2.0); EOSINOPHILS # (AUTO) 0.3 K/uL (0.0-0.4); EOSINOPHILS % (AUTO) 4.6 % (0.0-4.0); HEMATOCRIT 27.5 % (36-48); LYMPHOCYTES # (AUTO) 1.9 K/uL (1.0-5.5); LYMPHOCYTES % (AUTO) 28.1 % (20.5-51.5); MEAN CORPUSCULAR HEMOGLOBIN 31 pg (27-31); MEAN CORPUSCULAR HGB CONC 33 % (32-36); MEAN CORPUSCULAR VOLUME 95 fL (79.0-98.0); MONOCYTES # (AUTO) 0.3 K/uL (0.0-1.0); MONOCYTES % (AUTO) 4.1 % (1.7-9.3); NEUTROPHILS # (AUTO) 4.2 K/uL (1.8-7.7); NEUTROPHILS % (AUTO) 62.3 % (40.0-70.0); PLATELET COUNT (AUTO) 97 K/uL (130-430); RED BLOOD CELL COUNT(AUTO) 2.89 MIL/uL (4.2-6.2); RED CELL DISTRIBUTION WIDTH 19.8 % (9.0-15.0); WHITE BLOOD COUNT (AUTO) 6.8 K/uL (4.8-10.8)
[2016-11-07 08:12] LABS: ALBUMIN 1.7 g/dL (3.4-4.8); CALCIUM 7.7 mg/dL (8.4-11.0); CREATININE 4.46 mg/dL (0.55-1.30); TOTAL BILIRUBIN 1.6 mg/dL (0.0-1.0); TOTAL PROTEIN, SERUM 4.9 g/dL (6.4-8.3)
[2016-11-07 08:20] LABS: INR > 9.0 (0.8-1.2); PROTHROMBIN TIME > 90.0 SECS (9.5-12.5)
[2016-11-07 08:22] LABS: POTASSIUM 2.8 mmol/L (3.5-5.1)
--- NOTE | 2016-11-07 08:30 | NUR ---
Pt tolerating IVF BP 92/50.
--- NOTE | 2016-11-07 09:52 | NUR ---
Dr. Rooney at bedside for admission evaluation.
--- NOTE | 2016-11-07 10:02 | NUR ---
Patient will be admitted to care of . Admitted to Telemetry unit. Will go to room 102A. Summary report printed. Report given to Dwight SAGE.
[2016-11-07] MEDS: LACTULOSE 20 GM/30 ML UDC PO SCH ×3 (10:15→21:00)
--- NOTE | 2016-11-07 10:22 | NUR ---
Nephro Consult: for Dr. Johnson, regarding renal failure, ordered by Dr. Rooney, spoke with Rosie.
--- NOTE | 2016-11-07 10:25 | NUR ---
ADMISSION NOTE Received patient from ER via ramin, received report from peg SAGE. Patient admitted with diagnosis of hypotension. Patient oriented to hospital routine, call light, toileting and safety-patient verbalized understanding.
[2016-11-07] MEDS ORDERED: LACTULOSE 20 GM/30 ML UDC ONE (11:44)
--- NOTE | 2016-11-07 12:15 | NUR ---
PATIENT RESTING: Patient resting quietly. No acute distress noted. Vital signs within normal range.
--- NOTE | 2016-11-07 14:09 | NUR ---
PATIENT RESTING: Patient resting quietly. No acute distress noted. Vital signs within normal range.
--- NOTE | 2016-11-07 15:00 | NUR ---
CRITICAL LABS Late entry due to patient care critical labs relayed to Dr Rooney. Per he is aware of the critical labs from the ED. No new orders received.
[2016-11-07] MEDS ORDERED: MIDO5TAB20 PO (15:14)
[2016-11-07] MEDS ORDERED: FURO-149 PO (15:14)
[2016-11-07] MEDS ORDERED: MORPHINE 2 MG/ML INJ. SYRINGE IVP PRN (15:15)
--- NOTE | 2016-11-07 15:35 | NUR ---
GI Consult: For Dr. Churchill, regarding abdominal pain, ordered by Dr. Rooney, spoke with Katie.
--- NOTE | 2016-11-07 16:08 | NUR ---
PATIENT RESTING: Patient resting quietly. No acute distress noted.
--- NOTE | 2016-11-07 16:45 | NUR ---
Recieved patient on the unit. Patient AAOX4, calm, cooperative, able to speak in full sentences. Connected to monitor. BP 63/38. HR 109. States she had 8 Liters of fluid removed via HD two days ago. IV on right wrist #22 flushes easily with no s/sx of infection. Placed patient in flat position. Denies chest pain, denies sob. Will continue to monitor.
--- NOTE | 2016-11-07 16:46 | NUR ---
TRANSFERRED: To ICU-2. Report given to CHU Epps.
--- NOTE | 2016-11-07 16:59 | NUR ---
CONSULT FOR DR. MEYER (DR. PULIDO CONTROL PANEL OPERATOR CRUDE UNIT) CALLED SPOKE TO MILIND DIALED [phone]
[2016-11-07] MEDS ORDERED: ALBUMIN HUMAN 25% 100 ML IV ONE (17:15)
[2016-11-07] MEDS ORDERED: NS 500 ML IV ONE (17:15)
--- NOTE | 2016-11-07 17:30 | NUR ---
Dr. Kwan at the bedside. Updated on current pulmonary condition. Will follow through with any new orders.
[2016-11-07] MEDS: NOREPINEPHRINE BITARTRATE 4 MG in D5W 246 ML IV PRN ×2 (19:06→23:54)
--- NOTE | 2016-11-07 19:26 | NUR ---
Report given to CHU Camp via SBAR method. Endorsed all care.
--- NOTE | 2016-11-07 20:00 | NUR ---
ASSESSMENT Pt alert/orient to self, time and place. IV site patent with Levophed drip in progress. No redness or swelling noted @ site. Pt requesting bedside commode. Pt was instructed about getting out of bed with a low BP. Pt insisted on getting up to use bedside commode. @ bedside he to was informed regarding Pt getting out of bed with low BP. No c/o nausea or abdominal pain.
[2016-11-07] MEDS ORDERED: POTASSIUM CHLORIDE 20 MEQ TAB.PRT.SR PO ONE (21:00)
--- NOTE | 2016-11-07 21:00 | NUR ---
STOOL Pt had a BM, small amount of soft stool noted. Blood noted to be on tissue used for wiping. Pt stated " I have bleeding once in awhile, I think I have a hemorrhoid. Stool specimen sent to lab for c-diff testing.
[2016-11-07] MEDS: MORPHINE 2 MG/ML INJ. SYRINGE IVP PRN (21:21)
[2016-11-07] MEDS: NACL 0.9% 1,000 ML IV SCH (21:22)
[2016-11-07] MEDS: RIFAXIMIN 550 MG TABLET PO SCH (21:23)
[2016-11-08] VITALS (24 sets, daily range): BP systolic 73–112; BP diastolic 37–67; PULSE 91–124; RESP 14–25; TEMP 97.7–98.9; O2SAT 91–100
[2016-11-08] MEDS: MORPHINE 2 MG/ML INJ. SYRINGE IVP PRN ×2 (01:17→22:11)
[2016-11-08] MEDS ORDERED: PIPERACILLIN/TAZOBACTAM 3.375 GM/VIAL (ZOSYN) IV ONE (02:48)
[2016-11-08] MEDS: NOREPINEPHRINE BITARTRATE 4 MG in D5W 246 ML IV PRN (04:00)
--- NOTE | 2016-11-08 05:00 | NUR ---
MOBILITY Patient is able to reposition self in bed and is encouraged to request assistance when needed.
[2016-11-08] MEDS ORDERED: PIPERACILLIN/TAZO 3.375/DEX-IS 50 ML IV SCH (06:00)
[2016-11-08] MEDS: PIPERACILLIN/TAZO 3.375/DEX-IS 50 ML IV SCH ×3 (06:00→18:12)
[2016-11-08] MEDS: NACL 0.9% 1,000 ML IV SCH ×2 (07:00→09:57)
--- NOTE | 2016-11-08 07:30 | NUR ---
AM ROUNDS RECEIVED PT UP IN BED. AWAKE,ALERT, ORIENTED X4. BREATHING IS EVEN AND UNLABORED ON RA. NO ACUTE DISTRESS. SHERRON CATH TO LT CHEST FOR HD. PIV TO RT HAND WITH NS INFUSING, LEVOPHED RUNNING AT 20MCG/MIN. PT IS ANURIC. BSC AT BEDSIDE.
[2016-11-08] MEDS ORDERED: NOREPINEPHRINE 4 MG/4 ML VIAL IV ONE ×3 (08:18→12:21)
[2016-11-08] MEDS: LACTULOSE 20 GM/30 ML UDC PO SCH ×4 (09:00→21:00)
--- NOTE | 2016-11-08 09:13 | NUR ---
Nutrition Update Jw Scale 16 noted. Pt admitted for hypotension. Diet: clear liquid, no red BMI: 27.4 kg/m2 RD to follow per nutrition care standards.
--- NOTE | 2016-11-08 09:20 | NUR ---
HERE RADHA GARCIA, HERE TO SEE PT. NEW ORDER FOR CTAP. WANTS COUNTING MACHINE OPERATOR TO DECIDE WHEN CTAP IS DONE, SINCE PT WILL NEED HD AFTER PROCEDURE. CT IS WITH CONTRAST. WILL VERIFY WITH DR JONAS
[2016-11-08] MEDS: RIFAXIMIN 550 MG TABLET PO SCH ×2 (09:23→22:11)
[2016-11-08] MEDS ORDERED: ALBUMIN HUMAN 5% 250 ML IV ONE (09:30)
[2016-11-08 09:33] LABS: HEMOGLOBIN 9.2 g/dL (12.0-16.0); MEAN CORPUSCULAR HEMOGLOBIN 31 pg (27-31); MEAN CORPUSCULAR HGB CONC 33 % (32-36); MEAN CORPUSCULAR VOLUME 96 fL (79.0-98.0); PLATELET COUNT (AUTO) 92 K/uL (130-430); RED BLOOD CELL COUNT(AUTO) 2.93 MIL/uL (4.2-6.2); RED CELL DISTRIBUTION WIDTH 19.2 % (9.0-15.0)
[2016-11-08 09:35] LABS: WHITE BLOOD COUNT (AUTO) 19.5 K/uL (4.8-10.8)
[2016-11-08 09:36] LABS: CALCIUM 8.3 mg/dL (8.4-11.0); CREATININE 4.64 mg/dL (0.55-1.30); POTASSIUM 3.8 mmol/L (3.5-5.1)
[2016-11-08 09:41] LABS: ALBUMIN 2.3 g/dL (3.4-4.8); TOTAL BILIRUBIN 2.6 mg/dL (0.0-1.0); TOTAL PROTEIN, SERUM 5.3 g/dL (6.4-8.3)
[2016-11-08 10:15] LABS: ATYPICAL LYMPHOCYTES % 0 % (0-0); BAND % (MANUAL) 46 % (0-6); BASOPHILS % (MANUAL) 0 % (0-2); EOSINOPHILS % (MANUAL) 0 % (0-7); LYMPHOCYTES % (MANUAL) 10 % (20-46); MONOCYTES % (MANUAL) 5 % (0-11)
--- NOTE | 2016-11-08 10:15 | NUR ---
SHERRON OUT UPON ENTERING PT ROOM I OBSERVED SHERRON CATH ON FLOOR. PT DENIES PULLING OUT- IS UNSURE HOW SHERRON CAME OFF. CATHETER IS INTACT. NO ACTIVE BLEEDING AT INSERTION SITE. DR LOVING HERE TO SEE PT. MADE AWARE OF SHERRON. NEW ORDER FOR CONSULT WITH DR RUSHING TO PLACE NEW SHERRON
--- NOTE | 2016-11-08 10:20 | NUR ---
HERE DR LOVING, PCP, HERE TO SEE PT. THERAPEUTIC DISCUSSION RE HOSPICE CARE HELD WITH PT, , MD AND RN PRESENT. ALL R/B EXPLAINED. ALL QUESTIONS ANSWERED. PT REFUSES HOSPICE AT THIS TIME. PT WISHES TO SEEK A LIVER TRANSPLANT AT [place].
--- NOTE | 2016-11-08 10:21 | NUR ---
RN NOTES DR. RUSHING CALLED FOR CONSULT.
--- NOTE | 2016-11-08 11:00 | NUR ---
CALLED RECEIVED CALL FROM DR RUSHING. MADE AWARE OF SHERRON GEORGE. WILL BE HERE IN ONE HOUR TO PLACE NEW SHERRON
--- NOTE | 2016-11-08 11:12 | NUR ---
HERE DR JONAS, NEPHRO, HERE TO SEE PT. MADE AWARE SHERRON IS OUT. VERIFIED CTAP TIME/DATE. WANTS HD DONE TOMORROW AFTER CTAP, SINCE NEW SHERRON CATH WILL BE PLACED TODAY
[2016-11-08] MEDS ORDERED: HEPARIN SODIUM,PORCINE 5000 UNITS/ML VIAL IVP ONE (11:49)
[2016-11-08] MEDS ORDERED: HEPARIN SODIUM,PORCINE 5000 UNITS/ML VIAL ONE ×2 (11:49→14:40)
[2016-11-08 13:14] LABS: INR 1.8 (0.8-1.2); PROTHROMBIN TIME 19.5 SECS (9.5-12.5)
--- NOTE | 2016-11-08 14:30 | NUR ---
SHERRON CATH SHERRON CATH PLACED TO RT CHEST, BY DR RUSHING. PT SAI WELL
--- NOTE | 2016-11-08 15:19 | NUR ---
Discharge Planning Received order to transfer patient to [facility] for Liver Transplant. Met with patient and , Arturo Woodson, at bedside to discuss possible transfer. Patient stated that her insurance had just issued auth for outpatient eval at the liver transplant center at [facility]. I informed patient that MD wrote order to transfer to [place] as an in patient. Patient and spouse are agreeable. I explained the necessary steps including contacting @ [facility], obtaining an accepting MD, bed availability at the facility and her stability to transfer. Patient and spouse verbalized an understanding. Called and left a message with Mary @ [facility], [phone]. I also faxed her a facesheet, H&P, Consult, prog notes, 24 hr report and order for transfer to FAX [phone].
--- NOTE | 2016-11-08 17:30 | NUR ---
LACTIC ACID LACTIC ACID REPORTED TO DR LOVING. NO NEW ORDERS.
--- NOTE | 2016-11-08 18:40 | NUR ---
CLOSING NOTE PT RESTING IN BED. ALL NEEDS MET. WILL ENDORSE REPORT TO NOC SHIFT RN
--- NOTE | 2016-11-08 20:00 | NUR ---
ASSESSMENT Pt alert/orient to self, time, and place. Randy present right upper chest, dressing intact. Randy restarted in right upper chest earlier today. Dressing present over left upper chest intact (old Randy site). IV present right hand 22ga, no redness or swelling noted @ site. Skin intact.
[2016-11-09] VITALS (23 sets, daily range): BP systolic 72–112; BP diastolic 38–74; PULSE 93–127; RESP 12–27; TEMP 97.8–99.2; O2SAT 91–100
[2016-11-09] MEDS: PIPERACILLIN/TAZO 3.375/DEX-IS 50 ML IV SCH ×5 (00:07→23:51)
[2016-11-09] MEDS: NACL 0.9% 1,000 ML IV SCH ×2 (01:13→12:56)
[2016-11-09] MEDS: NOREPINEPHRINE BITARTRATE 8 MG in D5W 242 ML IV PRN ×2 (01:33→22:10)
[2016-11-09] MEDS: MORPHINE 2 MG/ML INJ. SYRINGE IVP PRN ×3 (02:03→22:29)
[2016-11-09 06:39] LABS: BASOPHILS # (AUTO) 0.1 K/uL (0.0-0.2); BASOPHILS % (AUTO) 0.3 % (0.0-2.0); EOSINOPHILS # (AUTO) 0.4 K/uL (0.0-0.4); EOSINOPHILS % (AUTO) 2.3 % (0.0-4.0); HEMATOCRIT 25.1 % (36-48); HEMOGLOBIN 8.3 g/dL (12.0-16.0); LYMPHOCYTES # (AUTO) 1.7 K/uL (1.0-5.5); LYMPHOCYTES % (AUTO) 9.8 % (20.5-51.5); MEAN CORPUSCULAR HEMOGLOBIN 31 pg (27-31); MEAN CORPUSCULAR HGB CONC 33 % (32-36); MEAN CORPUSCULAR VOLUME 95 fL (79.0-98.0); MONOCYTES # (AUTO) 1.2 K/uL (0.0-1.0); MONOCYTES % (AUTO) 6.8 % (1.7-9.3); NEUTROPHILS # (AUTO) 14.1 K/uL (1.8-7.7); NEUTROPHILS % (AUTO) 80.8 % (40.0-70.0); RED BLOOD CELL COUNT(AUTO) 2.63 MIL/uL (4.2-6.2); RED CELL DISTRIBUTION WIDTH 19.9 % (9.0-15.0); WHITE BLOOD COUNT (AUTO) 17.5 K/uL (4.8-10.8)
[2016-11-09 06:51] LABS: ALBUMIN 2.1 g/dL (3.4-4.8); CALCIUM 7.8 mg/dL (8.4-11.0); CREATININE 4.9 mg/dL (0.55-1.30); POTASSIUM 3.3 mmol/L (3.5-5.1); TOTAL BILIRUBIN 2.6 mg/dL (0.0-1.0); TOTAL PROTEIN, SERUM 4.9 g/dL (6.4-8.3)
--- NOTE | 2016-11-09 07:30 | NUR ---
AM ROUNDS RECEIVED PT UP IN BED. AWAKE,ALERT, ORIENTED X4. BREATHING IS EVEN AND UNLABORED ON RA. NO ACUTE DISTRESS. SHERRON CATH TO RT CHEST FOR HD. PIV TO RT HAND WITH NS INFUSING, LEVOPHED RUNNING AT 22MCG/MIN. PT IS ANURIC. BSC AT BEDSIDE FOR BM.
[2016-11-09] MEDS ORDERED: IOHEXOL 100 ML IV ONE (08:26)
[2016-11-09 08:43] LABS: PLATELET COUNT (AUTO) 86 K/uL (130-430)
[2016-11-09] MEDS: RIFAXIMIN 550 MG TABLET PO SCH ×2 (09:00→21:36)
[2016-11-09] MEDS: LACTULOSE 20 GM/30 ML UDC PO SCH ×3 (09:00→21:00)
--- NOTE | 2016-11-09 09:05 | NUR ---
BSC ASSIST PT UP TO BSC. RED BM NOTED. WASHED PT. ASSISTED BTB. PT SAI WELL
--- NOTE | 2016-11-09 09:41 | NUR ---
Discharge Planning Called lithography contact worker at [facility] listed in BAR notes, Mary, who stated that she is the coordinator and not the CM for this patient. She stated that she thinks Chanell is the CM her cell # [phone]. Called and left a voicemail for Chanell to return my call to discuss transfer to [facility]. Addendum: 11/09/16 at 1042 by Jada CURRY Ordered Radiology CD. Placed transportation packet in nurses station. Addendum: 11/09/16 at 1052 by Africa Domniguez RN Received call from Latasha @ [facility], opt 3, who stated that she has an accepting Geosciences Associate Professor for this patient, Dr Thomas, bed assignment is pending insurance authJovon Pagan asked for name of contact @ [facility], she was supplied with Chanell's name and #. Updated prog notes as well as 24 hr report and updated consults were faxed to Latasha @ [facility]) [phone]. Addendum: 11/09/16 at 1151 by Africa Dominguez RN Received call back from CELESTINO Lua @ [facility], , who stated that they are in the process of writing up a letter of agreement for the inpatient transfer to [facility]. I provided Chanell with Latasha's name and number at [facility].
--- NOTE | 2016-11-09 11:00 | NUR ---
CAT SCAN PT TRANSFERRED TO RADIOLOGY FOR CTAP, ACCOMPANIED BY MYSELF AND SENIOR INVESTMENT ANALYST. PT SAI PROC WELL.
[2016-11-09] MEDS: metroNIDAZOLE 500 mg/NS 100 ML IV SCH ×2 (14:00→21:36)
[2016-11-09] MEDS ORDERED: NACL 0.9% 1,000 ML IV SCH (14:30)
[2016-11-09] MEDS: MIDODRINE HCL 5 MG TABLET (PROAMATINE) PO SCH ×2 (15:00→21:36)
--- NOTE | 2016-11-09 15:00 | NUR ---
HD HEMODIALYSIS STARTED. PT IS MEDICALLY STABLE AT THIS TIME. SAI WELL
[2016-11-09] MEDS ORDERED: POTASSIUM CHLORIDE 20 MEQ TAB.PRT.SR PO ONE (16:45)
--- NOTE | 2016-11-09 18:58 | NUR ---
CLOSING NOTE PT RESTING IN BED. ALL NEEDS MET. WILL ENDORSE REPORT TO NOC SHIFT RN
--- NOTE | 2016-11-09 20:00 | NUR ---
PM SHIFT ASSESSMENT, PT AAO. ON LEVOPHED DRIP @ 20 MCG /MIN. SBP IN THE 90,S TO 100.ABD LARGE, DISTENDED AND FIRM.C/O ABD PAIN BUT WAS MEDICATED RECENTLY.COOPERATIVE.WATCHING TV.SHERRON CATH INTACT ON RT SCL.
--- NOTE | 2016-11-09 22:30 | NUR ---
ABD PAIN, MED WITH MORPHINE FOR C/O ABD PAIN 05/20. STATED IT HELPS ONLY FOR LITTLE BIT.
[2016-11-10] VITALS (24 sets, daily range): BP systolic 79–125; BP diastolic 42–76; PULSE 67–122; RESP 9–26; TEMP 97.9–98.6; O2SAT 94–99
--- NOTE | 2016-11-10 | NUR ---
PO INTAKE, PT C/O BEING THIRSTY AND TAKING ICE CHIPS PO .ASKING FOR WATER AND ICE OFTEN. INSTRUCTED PT BEING A DIALYSIS PT SHE NEED TO LIMIT FLUID INTAKE. STATED ,'I KNOW IT BUT AFTER DIALYSIS I AM ALWAYS THIRSTY'.
--- NOTE | 2016-11-10 02:00 | NUR ---
UP TO BSC WITH ASSIST, NO BM. VERY SMALL AMT OF BLOOD NOTED ON HER PULL UP DIAPER. CLEANED AND ASSISTED BACK TO BED.
[2016-11-10] MEDS: MORPHINE 2 MG/ML INJ. SYRINGE IVP PRN (02:25)
--- NOTE | 2016-11-10 02:25 | NUR ---
ABD PAIN. MEDICATED WITH MORPHINE PER REQUEST.PAIN 05/20
[2016-11-10] MEDS: metroNIDAZOLE 500 mg/NS 100 ML IV SCH ×3 (05:30→22:11)
[2016-11-10] MEDS: PIPERACILLIN/TAZO 3.375/DEX-IS 50 ML IV SCH ×4 (05:30→23:56)
[2016-11-10 06:26] LABS: HEMATOCRIT 24.9 % (36-48); HEMOGLOBIN 8.2 g/dL (12.0-16.0); MEAN CORPUSCULAR HEMOGLOBIN 31 pg (27-31); MEAN CORPUSCULAR HGB CONC 33 % (32-36); MEAN CORPUSCULAR VOLUME 95 fL (79.0-98.0); PLATELET COUNT (AUTO) 92 K/uL (130-430); RED BLOOD CELL COUNT(AUTO) 2.63 MIL/uL (4.2-6.2); RED CELL DISTRIBUTION WIDTH 19.6 % (9.0-15.0); WHITE BLOOD COUNT (AUTO) 20.7 K/uL (4.8-10.8)
[2016-11-10 06:39] LABS: ALBUMIN 1.7 g/dL (3.4-4.8); CALCIUM 7.7 mg/dL (8.4-11.0); CREATININE 3.54 mg/dL (0.55-1.30); POTASSIUM 4.4 mmol/L (3.5-5.1); TOTAL BILIRUBIN 3.3 mg/dL (0.0-1.0); TOTAL PROTEIN, SERUM 4.8 g/dL (6.4-8.3)
--- NOTE | 2016-11-10 07:00 | NUR ---
CONDITION SAME, AWAITING FOR TR TO [facility]. REPORT GIVEN TO ON COMING RN
--- NOTE | 2016-11-10 07:30 | NUR ---
AM ROUNDS RECEIVED PT UP IN BED. AWAKE,ALERT, ORIENTED X4. BREATHING IS EVEN AND UNLABORED ON RA. NO ACUTE DISTRESS. SHERRON CATH TO RT CHEST FOR HD. PIV TO RT HAND WITH NS INFUSING, LEVOPHED RUNNING AT 14 MCG/MIN. PT IS ANURIC. BSC AT BEDSIDE FOR BM.
[2016-11-10] MEDS: NOREPINEPHRINE BITARTRATE 8 MG in D5W 242 ML IV PRN (07:56)
[2016-11-10 08:37] LABS: ATYPICAL LYMPHOCYTES % 0 % (0-0); BAND % (MANUAL) 4 % (0-6); BASOPHILS % (MANUAL) 0 % (0-2); EOSINOPHILS % (MANUAL) 0 % (0-7); LYMPHOCYTES % (MANUAL) 5 % (20-46); MONOCYTES % (MANUAL) 9 % (0-11)
--- NOTE | 2016-11-10 08:45 | NUR ---
RN ROUNDS ADMIN AM MEDS ORDERED. PT SAI OCONNOR
[2016-11-10] MEDS: MIDODRINE HCL 5 MG TABLET (PROAMATINE) PO SCH ×3 (08:48→20:30)
[2016-11-10] MEDS: RIFAXIMIN 550 MG TABLET PO SCH ×2 (08:48→20:30)
[2016-11-10] MEDS: LACTULOSE 20 GM/30 ML UDC PO SCH ×3 (08:52→15:30)
--- NOTE | 2016-11-10 08:55 | NUR ---
CHG CHG BATH GIVEN. PT GOWN CHANGED. ASSISTED BY STUDENT NURSE. PT SAI WELL. C/O BEING COLD. BLANKETS PROVIDED
--- NOTE | 2016-11-10 11:23 | NUR ---
DC PLANNING: Received phone call from Ivett , critical care registered nurse from [facility]. phone# [phone], requesting to fax update info to # [phone]. The updated labs, chem, progress notes faxing per her request. Ivett stated " she will create bed for the pt. and planning to transfer to [facility] today.
[2016-11-10] MEDS: ONDANSETRON HCL 4 MG/2 ML VIAL IM PRN (15:30)
--- NOTE | 2016-11-10 15:30 | NUR ---
CALLED MD CALLED DR AGGARWAL FOR ORDERS. LABS FOR PARA WERE ENTERED- PARACENTESIS WAS NOT ORDERED IN COMPUTER. NEW ORDER RECEIVED, NOTED, AND CARRIED OUT
--- NOTE | 2016-11-10 15:50 | NUR ---
VOMITING PT VOMITING. CALLED DR AGGARWAL. NO ANTI EMETIC ON PTS EMAR
--- NOTE | 2016-11-10 15:55 | NUR ---
HERE DR AGGARWAL HERE TO SEE PT. MADE AWARE OF VOMITING. ZOFRAN ORDERED.
--- NOTE | 2016-11-10 16:00 | NUR ---
PARACENTESIS PARA DONE AT BEDSIDE. 6.5L OUT. PT WITH VOMITING BEFORE AND DURING PROCEDURE. ZOFRAN ADMIN DURING PROC. PT REPORTED FEELING BETTER.
[2016-11-10] MEDS ORDERED: ONDANSETRON HCL 4 MG/2 ML VIAL ONE (16:03)
--- NOTE | 2016-11-10 17:10 | NUR ---
RN ROUND PT RESTING IN BED. DENIES NAUSEA. REPORTS FEELING "MUCH BETTER" POST PARA. ASKED FOR LIGHT TO BE TURNED OFF SO THAT SHE CAN REST. PT REPORTS NOT SLEEPING WELL LAST NIGHT. LIGHTS CLOSED. CALL LIGHT IS ON BED WITHIN REACH. ENCOURAGED PT TO CALL ME WITH ANY NEEDS.
--- NOTE | 2016-11-10 18:24 | NUR ---
CLOSING NOTE PT RESTING IN BED. ALL NEEDS MET. WILL ENDORSE REPORT TO NOC SHIFT RN
--- NOTE | 2016-11-10 20:00 | NUR ---
PT REFUSED TO BE REPOSITIONED. EDUCATION GIVEN REGARDING THE RISK OF DEVELOPING PRESSURE ULCER IF NOT TURNING AT LEAST EVERY 2 HOURS. PT UNDERSTOOD AND SAID SHE CAN TURN HERSELF.
--- NOTE | 2016-11-10 20:00 | NUR ---
PM ASSESSMENT PT RESTING IN BED, ALERT AND ORIENTED TIMES 4, CALM. NO SIGNS OF DISTRESS AT THIS TIME. PT DENIES ANY PAIN. SINUS TACHYCARDIA ON WATER TECHNICIAN. BREATHING EVEN AND UNLABORED. PT ON ROOM AIR. OS SAT 97%. PERIPHERAL IV 22G TO RIGHT HAND DRESSING CLEAN, INTACT. SHERRON CATH NOTED TO RIGHT CHEST DRESSING INTACT. BOTH SITES HAVE NO SIGNS OF INFECTION OR INFILTRATION. LEVOPHED INFUSING @ 14 MCG/MIN. EDEMA NOTED TO BILATERAL LOWER EXTREMITIES. HEELS ELEVATED ON PILLOW. CALL LIGHT WITHIN REACH. BED AT LOWEST POSITION. CONTINUE TO MONITOR.
[2016-11-10 21:59] LABS: BF APPEARANCE UNSPUN HAZY (CLEAR); BODY FLUID COLOR YELLOW (LT YELLOW); BODY FLUID TOTAL VOLUME 2150 mL; SOURCE/TYPE ,BODY FLUID PERITONEAL
[2016-11-10 22:00] LABS: LYMPHOCYTES, BODY FLUID 4 %; NEUTROPHIL, BODY FLUID 96 %; RBC, BODY FLUID 44 /uL; WBC, BODY FLUID 483 /uL
[2016-11-11] VITALS (22 sets, daily range): BP systolic 83–116; BP diastolic 45–68; PULSE 85–122; RESP 12–24; TEMP 98.1–99.8; O2SAT 93–99
[2016-11-11] MEDS: NOREPINEPHRINE BITARTRATE 8 MG in D5W 242 ML IV PRN ×3 (02:27→17:27)
[2016-11-11] MEDS: ONDANSETRON HCL 4 MG/2 ML VIAL IM PRN ×3 (05:13→20:27)
[2016-11-11] MEDS: metroNIDAZOLE 500 mg/NS 100 ML IV SCH ×2 (05:14→13:02)
[2016-11-11] MEDS: PIPERACILLIN/TAZO 3.375/DEX-IS 50 ML IV SCH (05:14)
[2016-11-11 05:50] LABS: BASOPHILS # (AUTO) 0.1 K/uL (0.0-0.2); BASOPHILS % (AUTO) 0.3 % (0.0-2.0); EOSINOPHILS # (AUTO) 0.1 K/uL (0.0-0.4); EOSINOPHILS % (AUTO) 0.4 % (0.0-4.0); HEMATOCRIT 24.2 % (36-48); LYMPHOCYTES # (AUTO) 1.2 K/uL (1.0-5.5); LYMPHOCYTES % (AUTO) 6.7 % (20.5-51.5); MEAN CORPUSCULAR HEMOGLOBIN 31 pg (27-31); MEAN CORPUSCULAR HGB CONC 33 % (32-36); MEAN CORPUSCULAR VOLUME 94 fL (79.0-98.0); MONOCYTES # (AUTO) 1.7 K/uL (0.0-1.0); MONOCYTES % (AUTO) 9.2 % (1.7-9.3); NEUTROPHILS # (AUTO) 15.4 K/uL (1.8-7.7); NEUTROPHILS % (AUTO) 83.4 % (40.0-70.0); RED BLOOD CELL COUNT(AUTO) 2.58 MIL/uL (4.2-6.2); RED CELL DISTRIBUTION WIDTH 19.5 % (9.0-15.0); WHITE BLOOD COUNT (AUTO) 18.5 K/uL (4.8-10.8)
[2016-11-11 06:06] LABS: ALBUMIN 1.4 g/dL (3.4-4.8); CREATININE 4.27 mg/dL (0.55-1.30); POTASSIUM 4.5 mmol/L (3.5-5.1); TOTAL BILIRUBIN 4.7 mg/dL (0.0-1.0); TOTAL PROTEIN, SERUM 4.4 g/dL (6.4-8.3)
--- NOTE | 2016-11-11 07:37 | NUR ---
GAVE REPORT TO ONCOMING NURSE
--- NOTE | 2016-11-11 08:00 | NUR ---
Received awake alert,cooperative,Skin warm and dry,intact,afebrile,pale color.Lower extremities 4+pedal edema noted. Scope Sinus rythym-Sinus tachycardia.HR 90-130/min.with occ PAC's. Lungs sound bilateral clear O2 sat. 100% in room air. Abdomen enlarged,distended noted. hypoactive bowel sound. NO BM noted. Nauseated ,vomitted dark brown color vomutus small amount. with Randy cath right subclavian area. IV right hand patent with IV Levophed titrated to keep SBO above 90mmhg. for dialysis today.Patient anuric.
[2016-11-11 08:07] LABS: PLATELET COUNT (AUTO) 67 K/uL (130-430)
--- NOTE | 2016-11-11 08:30 | NUR ---
Dialysis nurse came,aware order,dialysis started.BP 90/53. Levophed titrated up to keep SBP above 90'sas order
[2016-11-11] MEDS ORDERED: NS 500 ML IV ONE (08:45)
[2016-11-11] MEDS: LACTULOSE 20 GM/30 ML UDC PO SCH ×3 (09:23→20:26)
[2016-11-11] MEDS: MIDODRINE HCL 5 MG TABLET (PROAMATINE) PO SCH ×3 (09:23→20:27)
[2016-11-11] MEDS: RIFAXIMIN 550 MG TABLET PO SCH ×2 (09:24→20:32)
--- NOTE | 2016-11-11 09:25 | NUR ---
nausea and vomiting noted. Dark brown color vomitus noted,small amount. Zofran 4mg IV given as order. with relief.
[2016-11-11] MEDS ORDERED: ONDANSETRON HCL 4 MG/2 ML VIAL IVP PRN (10:00)
--- NOTE | 2016-11-11 10:30 | NUR ---
Dr Dolan ,came,assessed. informed Nausea and vomiting frequent this time. Aware WBC 18.5.Hgb 8.0/Hct 24.2,Albumin level 1.4,Platelet 67;with itchiness with Zosyn IVPB. with orders and carried out.Dr Nye,infectious MD for consult and notified thru answering service.Zosyn IVPB discontinued, replaced with Rocephin. albumin orderred,Zofran frequency changed and carried out
--- NOTE | 2016-11-11 10:40 | NUR ---
Called Dr. Nye with a consult, spoke with Amita from the exchange
[2016-11-11] MEDS ORDERED: cefTRIAXone 1 GM IVPB PREMIX 50 ML IV SCH (11:00)
[2016-11-11] MEDS ORDERED: ALBUMIN HUMAN 25% 100 ML IV ONE ×2 (11:05→16:00)
--- NOTE | 2016-11-11 11:30 | NUR ---
Nausea and vomiting noted. small amount dark,color vomitus. Zofran IVP given as order
--- NOTE | 2016-11-11 11:45 | NUR ---
Hemodialysis done , completed by dialysis nurse. Zero output as endorsed due to Low BP. Levophed reach 30mcg/min . BP fluctuating. will inform Dr Johnson .
[2016-11-11 11:54] LABS: BODY FLUID GLUCOSE 221 mg/dL; BODY FLUID TOTAL PROTEIN 0.7 g/dL
--- NOTE | 2016-11-11 12:00 | NUR ---
Dr Ruvalcaba came, aware on Levophed drip. talked to patient about plan. Denies SOB this time.
--- NOTE | 2016-11-11 13:00 | NUR ---
Dr Johnson notified regarding hemodialysis zero output.states no need dialysis tomorrow. Informed ,possibility for tranfer to [facility] today.No new order given.
[2016-11-11] MEDS ORDERED: ONDANSETRON HCL 4 MG/2 ML VIAL IVP SCH (14:00)
--- NOTE | 2016-11-11 14:00 | NUR ---
manager reimbursement Magui zeng will be jlsfer patient at [facility] today before 1700. Arrangement done. Copied of patient document ready . will call transport as soon [facility] call in as instructed. Patient and informed.
--- NOTE | 2016-11-11 16:00 | NUR ---
Levophed drip at 10mcg/min Latest BP90/51, Scope Sinus tachycardia. Denies pain. No nausea nor vomiting noted this time.Bedbath renderrd . Kept clean and dry.
--- NOTE | 2016-11-11 17:00 | NUR ---
Transfer to [facility] Spoke with Chanell from [facility] who provided the unit number = 4700 for the pt to transfer to. She said that the room will be ready by 190. Chanell provided the number to give report to. [phone]. Number was given to pt's nurse Magui Page RN. Arrange transportation with [facility] ambulance for [facility]S transport with a nurse. Made aware that pt is on Levophed drip. Per [facility] the earliest they can come here is 1999. non destructive testing supervisor CHU Sanhcez made aware of the plan. Pt in no acute distress. Will continue to monitor.
--- NOTE | 2016-11-11 17:29 | NUR ---
nausea and vomitted moderate amount vomitus
--- NOTE | 2016-11-11 18:00 | NUR ---
Awake alert . Denies pain,no nausea ,no vomiting this time . prepared for discharge. PM care done ,gown change to orange color . Levophed at 12mcg/min. BP 95/52.Report given to Enriqueta for continuity of care unders Dr Avilez, Care endorsed to Tricia SAGE Patient aware of transfer. [facility] anbulance notified by charge nurse Olya
--- NOTE | 2016-11-11 19:00 | NUR ---
Care endorsed to Omar SAGE .
--- NOTE | 2016-11-11 20:00 | NUR ---
Pt awake alert oriented x 4. clear speech. Room air at 97% at the time. abdomen distended. Pt denied SOB at the time. Pt aware of transfer to [place]. Pt stated that aware as well. Assessment completed. Bed in the lowest position, locked. HOB semi adkins position, locked. Call light in reach. will continue to discharge pt.
--- NOTE | 2016-11-11 21:15 | NUR ---
pt transfered to [facility] via [facility] transportation. Samantha SAGE report and packet given with two CD's. Pt awake alert oriented x 4. clear speech. Pt transered to 4th floor unit 4700 and Room 19.
[2016-11-14 18:06] LABS: ALBUMIN,BODY FLUID 0.2 g/dL (.)
== END 2016-11-11 21:15 | disposition short-term general hospital (02) | DRG 720 ==
LOC: SED 06:30 → SMU 09:40 → STU 10:02 → SIC 16:47
PROVIDERS: ADMIT Internal Medicine Hospice and Palliative Medicine; ATTEND Internal Medicine Hospice and Palliative Medicine
PROC: 02HV33Z Insertion of Infusion Device into Superior Vena Cava, Percutaneous Approach (ICD-10-PCS; principal; 2016-11-08)
PROC: B548ZZA Ultrasonography of Superior Vena Cava, Guidance (ICD-10-PCS; 2016-11-08)
PROC: 5A1D60Z (ICD-10-PCS; 2016-11-09)
PROC: 0W9G3ZZ Drainage of Peritoneal Cavity, Percutaneous Approach (ICD-10-PCS; 2016-11-11)
PROC: BW40ZZZ Ultrasonography of Abdomen (ICD-10-PCS; 2016-11-11)
DX: A41.9 Sepsis, unspecified organism (principal); R57.1 Hypovolemic shock; N18.6 End stage renal disease; I12.0 Hypertensive chronic kidney disease with stage 5 chronic kidney disease or end stage renal disease; D69.6 Thrombocytopenia, unspecified; N17.9 Acute kidney failure, unspecified; K70.31 Alcoholic cirrhosis of liver with ascites; E87.1 Hypo-osmolality and hyponatremia; K72.90 Hepatic failure, unspecified without coma; D64.9 Anemia, unspecified; F10.10 Alcohol abuse, uncomplicated; Z99.2 Dependence on renal dialysis; Z88.2 Allergy status to sulfonamides; Z79.899 Other long term (current) drug therapy
CPT/HCPCS: 36415; 49083; 71010; 80053; 82042; 82140-TC; 82947-TC; 83605; 83690-TC; 84157-TC; 85007; 85025; 85027; 85049-TC; 85610-TC; 87040-TC; 87070-TC; 87075-TC; 87081; 87101; 87230-TC; 89051-TC; 89060-TC; 90935; 90937; 96361; 96374; 96375; 99285; C1729; C1751; J0696; J1644; J1885; J2270; J2405; J2543; J3490; J7030; J7040; J7060; P9041; P9046; Q9967

== ENCOUNTER 2019-05-16 17:48 | Emergency (ER) | payer OTHER, MEDICAID ==
[~2019-05-16] VITALS: Ht 160 cm; Wt 70.8 kg
[~2019-05-16 17:48] MED LIST changes: -ASPI-1063 PO; -ATEN50TA PO; -CYAN10009 PO; -FENO160 PO; -FERR159T2 PO; +FURO-149 PO; -FURO-150 PO; -FURO40TA5 PO; -GLIP10TA11 PO; -GLIP10TA74 PO; -GLU850 PO; -KAY15 PO; -METO-304 PO; +MIDO5TAB PO; -MULT PO; -OMEP20CA4 PO; -OMEP40CA PO; -OMEP40CA33 PO; -POTA8TAB4 PO; -PRO40 PO; -PROP10TA10 PO; -SPIR100T24 PO; -SPIR25TA PO; -SUCR1TAB78 PO; -VANC250C11 IV
[2019-05-16 17:57] VITALS: BP_SYST 154
[2019-05-16] MEDS ORDERED: NACL 0.9% 1,000 ML IV ONE (19:15)
[2019-05-16 19:31] LABS: BASOPHILS % (AUTO) 0.6 % (0.0-2.0); EOSINOPHILS # (AUTO) 0.1 K/uL (0.0-0.4); EOSINOPHILS % (AUTO) 2.1 % (0.0-4.0); HEMATOCRIT 23.7 % (36-48); HEMOGLOBIN 8.1 g/dL (12.0-16.0); LYMPHOCYTES # (AUTO) 0.5 K/uL (1.0-5.5); LYMPHOCYTES % (AUTO) 11.5 % (20.5-51.5); MEAN CORPUSCULAR HEMOGLOBIN 31 pg (27-31); MEAN CORPUSCULAR HGB CONC 34 % (32-36); MEAN CORPUSCULAR VOLUME 90 fL (79.0-98.0); MONOCYTES # (AUTO) 0.4 K/uL (0.0-1.0); MONOCYTES % (AUTO) 7.5 % (1.7-9.3); NEUTROPHILS # (AUTO) 3.7 K/uL (1.8-7.7); NEUTROPHILS % (AUTO) 78.3 % (40.0-70.0); PLATELET COUNT (AUTO) 234 K/uL (130-430); RED BLOOD CELL COUNT(AUTO) 2.64 MIL/uL (4.2-6.2); RED CELL DISTRIBUTION WIDTH 14.3 % (9.0-15.0); WHITE BLOOD COUNT (AUTO) 4.8 K/uL (4.8-10.8)
[2019-05-16 19:42] LABS: CREATININE 2.13 mg/dL (0.55-1.30); POTASSIUM 5.2 mmol/L (3.5-5.1)
[2019-05-16 19:45] LABS: INR 1.1 (0.8-1.2); PROTHROMBIN TIME 11.2 SECS (9.5-12.5)
[2019-05-16 19:59] LABS: ALBUMIN 3.2 g/dL (3.4-4.8); TOTAL BILIRUBIN 0.5 mg/dL (0.0-1.0)
[2019-05-16 21:27] LABS: BILIRUBIN,URINE NEGATIVE (NEGATIVE); BLOOD, URINE 1+ (NEGATIVE); CLARITY/URINE SL CLOUDY (CLEAR); COLOR,URINE YELLOW (YELLOW); GLUCOSE,URINE NEGATIVE (NEGATIVE); KETONES,URINE NEGATIVE (NEGATIVE); LEUKOCYTE ESTERASE ,URINE 3+ (NEGATIVE); NITRITE, URINE NEGATIVE (NEGATIVE); PROTEIN URINE 1+ (NEGATIVE); UROBILINOGEN,URINE 0.2 (0.2-1.0)
[2019-05-16 21:40] LABS: BACTERIA,URINE MANY /HPF (None Seen); MUCUS,URINE None Seen /LPF (None Seen); WBC,URINE >100 /HPF (0-3)
[2019-05-16] MEDS ORDERED: cefTRIAXone 1 GM in D5W 50 ML IV ONE (22:00)
[2019-05-16] MEDS ORDERED: cefTRIAXone 1 GM IVPB PREMIX 50 ML IV ONE (23:01)
[2019-05-17 00:35] LABS: HEMATOCRIT 24.6 % (36-48); HEMOGLOBIN 8.5 g/dL (12.0-16.0); MEAN CORPUSCULAR HEMOGLOBIN 31 pg (27-31); MEAN CORPUSCULAR HGB CONC 35 % (32-36); MEAN CORPUSCULAR VOLUME 90 fL (79.0-98.0); PLATELET COUNT (AUTO) 226 K/uL (130-430); RED BLOOD CELL COUNT(AUTO) 2.74 MIL/uL (4.2-6.2); RED CELL DISTRIBUTION WIDTH 14.3 % (9.0-15.0); WHITE BLOOD COUNT (AUTO) 4.7 K/uL (4.8-10.8)
[2019-05-17 00:49] LABS: CALCIUM 8.8 mg/dL (8.4-11.0); CREATININE 2.08 mg/dL (0.55-1.30); POTASSIUM 4.5 mmol/L (3.5-5.1)
[2019-05-17 00:51] LABS: ATYPICAL LYMPHOCYTES % 0 % (0-0); BAND % (MANUAL) 3 % (0-6); BASOPHILS % (MANUAL) 0 % (0-2); EOSINOPHILS % (MANUAL) 1 % (0-7); LYMPHOCYTES % (MANUAL) 14 % (20-46); METAMYELOCYTES % 0 % (0-0); MONOCYTES % (MANUAL) 7 % (0-11); MYELOCYTES % 1 % (0-0)
[2019-05-17 02:40] VITALS: BP_SYST 132
== END 2019-05-17 02:40 | disposition left against medical advice (07) ==
LOC: SED 17:48
DX: J06.9 Acute upper respiratory infection, unspecified (principal); R11.10 Vomiting, unspecified; I12.9 Hypertensive chronic kidney disease with stage 1 through stage 4 chronic kidney disease, or unspecified chronic kidney disease; E11.22 Type 2 diabetes mellitus with diabetic chronic kidney disease; N18.9 Chronic kidney disease, unspecified; Z88.2 Allergy status to sulfonamides; Z79.899 Other long term (current) drug therapy
CPT/HCPCS: 36415; 71045; 80048; 80053; 81000; 83605; 84484; 85007; 85025; 85027; 85610; 85730; 87040; 87086; 87186; 93005; 96361; 96365; 99284; J0696; J7030

== ENCOUNTER 2021-05-24 11:38 | Emergency (ER) | payer OTHER, MEDICAID ==
[~2021-05-24] VITALS: Ht 157.5 cm; Wt 71.2 kg
[~2021-05-24 11:38] MED LIST changes: -MIDO5TAB PO; +MIDO5TAB4 PO
[2021-05-24 11:41] VITALS: BP_SYST 114
--- NOTE | 2021-05-24 11:41 | NUR ---
Patient to H1 to gown for evaluation. Side rails up.
--- NOTE | 2021-05-24 12:00 | NUR ---
PT ARRIVES VIA BLS FOR LEFT SHOULDER PAIN AND LEFT LEG PAIN S/P FALL ON SUNDAY. PT ARRIVES 05/20, LEFT ARM AND LEG PAIN
[2021-05-24 12:42] LABS: BASOPHILS % (AUTO) 0.4 % (0.0-2.0); EOSINOPHILS % (AUTO) 0.3 % (0.0-4.0); HEMATOCRIT 28.8 % (36-48); HEMOGLOBIN 10.1 g/dL (12.0-16.0); LYMPHOCYTES # (AUTO) 0.4 K/uL (1.0-5.5); LYMPHOCYTES % (AUTO) 5.3 % (20.5-51.5); MEAN CORPUSCULAR HEMOGLOBIN 34 pg (27-31); MEAN CORPUSCULAR HGB CONC 35 % (32-36); MEAN CORPUSCULAR VOLUME 98 fL (79.0-98.0); MONOCYTES # (AUTO) 0.5 K/uL (0.0-1.0); MONOCYTES % (AUTO) 6.4 % (1.7-9.3); NEUTROPHILS # (AUTO) 7.3 K/uL (1.8-7.7); NEUTROPHILS % (AUTO) 87.6 % (40.0-70.0); PLATELET COUNT (AUTO) 114 K/uL (130-430); RED BLOOD CELL COUNT(AUTO) 2.94 MIL/uL (4.2-6.2); RED CELL DISTRIBUTION WIDTH 14.2 % (9.0-15.0); WHITE BLOOD COUNT (AUTO) 8.3 K/uL (4.8-10.8)
--- NOTE | 2021-05-24 12:50 | NUR ---
ER at bedside examining patient.
[2021-05-24] MEDS ORDERED: HYDROcodone/ACETAMIN 5-325 MG TAB (NORCO/ VICODIN) PO ONE (13:00)
[2021-05-24 13:18] LABS: CALCIUM 8.8 mg/dL (8.4-11.0); CREATININE 2.95 mg/dL (0.55-1.30); POTASSIUM 4.1 mmol/L (3.5-5.1)
[2021-05-24 13:24] LABS: ALBUMIN 3.3 g/dL (3.4-4.8); INR 1.2 (0.8-1.2); PROTHROMBIN TIME 12.8 SECS (9.5-12.5); TOTAL BILIRUBIN 1.3 mg/dL (0.0-1.0)
--- NOTE | 2021-05-24 14:10 | NUR ---
LEFT ARM IMMOBILIZER APPLIED
[2021-05-24] MEDS ORDERED: HYDR-3917 PO (14:22)
[2021-05-24 14:52] VITALS: BP_SYST 114
--- NOTE | 2021-05-24 14:53 | NUR ---
Patient given written and verbal discharge instructions and verbalizes understanding. ER MD discussed with patient the results and treatment provided. Patient in stable condition. ID arm band removed. Rx of NORCO given. Patient educated on pain management and to follow up with PMD. Pain Scale 3/10. Opportunity for questions provided and answered. Medication side effect fact sheet provided.
== END 2021-05-24 14:52 | disposition home or self-care (01) ==
LOC: SED 11:38
DX: S42.292A Other displaced fracture of upper end of left humerus, initial encounter for closed fracture (principal); S20.212A Contusion of left front wall of thorax, initial encounter; I10 Essential (primary) hypertension; E11.9 Type 2 diabetes mellitus without complications; Z88.2 Allergy status to sulfonamides; Z79.899 Other long term (current) drug therapy; W18.39XA Other fall on same level, initial encounter; Y93.89 Activity, other specified; Y92.89 Other specified places as the place of occurrence of the external cause; Y99.8 Other external cause status
CPT/HCPCS: 36415; 71250-TC; 73060-TC; 73564; 80053; 82550; 85025; 85610-TC; 85730-TC; 86886; 86900; 86901; 99285

== ENCOUNTER 2021-10-13 11:53 | Emergency (ER) | payer OTHER, MEDICAID, SELFPAY ==
[~2021-10-13] VITALS: Ht 157.5 cm; Wt 68.0 kg
[2021-10-13 11:53] VITALS: BP_SYST 136
[~2021-10-13 11:53] MED LIST changes: +HYDR-3917 PO
[2021-10-13] MEDS ORDERED: HYDROcodone/ACETAMIN 7.5-325 MG TAB PO ONE (13:00)
[2021-10-13 14:23] VITALS: BP_SYST 153
== END 2021-10-13 14:52 | disposition home or self-care (01) ==
LOC: SED 11:53
DX: S42.201A Unspecified fracture of upper end of right humerus, initial encounter for closed fracture (principal); S09.90XA Unspecified injury of head, initial encounter; R53.1 Weakness; E11.9 Type 2 diabetes mellitus without complications; Z79.899 Other long term (current) drug therapy; W18.39XA Other fall on same level, initial encounter; Y93.89 Activity, other specified; Y92.89 Other specified places as the place of occurrence of the external cause; Y99.8 Other external cause status
CPT/HCPCS: 73000-TC; 73030; 99284

== ENCOUNTER 2022-04-30 02:18 | Inpatient (IN) | payer OTHER, MEDICAID ==
[2022-04-30] VITALS (10 sets, daily range): BP systolic 131–160
[~2022-04-30] VITALS: Ht 157.5 cm; Wt 61.7 kg
[2022-04-30] MEDS ORDERED: ONDANSETRON HCL 4 MG/2 ML VIAL ONE (02:38)
[2022-04-30] MEDS ORDERED: AZITHROMYCIN 500 MG in NS 250 ML IV ONE (02:45)
[2022-04-30] MEDS ORDERED: VANCOMYCIN HCL 1,000 MG in NS 250 ML IV ONE (02:45)
[2022-04-30] MEDS ORDERED: CEFEPIME 2 GM in D5W 100 ML IV ONE (02:45)
[2022-04-30] MEDS ORDERED: ONDANSETRON HCL 4 MG/2 ML VIAL IVP ONE (02:45)
[2022-04-30] MEDS ORDERED: VANCOMYCIN HCL 1000 MG/VIAL IV ONE (03:15)
[2022-04-30] MEDS ORDERED: METOCLOPRAMIDE HCL 10 MG/2 ML VIAL IVP ONE (03:15)
[2022-04-30] MEDS ORDERED: AZITHROMYCIN 500 MG/VIAL (ZITHROMAX) IV ONE (03:16)
[2022-04-30] MEDS ORDERED: CEFEPIME 1 GM/VIAL (MAXIPIME) ONE (03:18)
[2022-04-30 03:54] LABS: BASOPHILS % (AUTO) 0.4 % (0.0-2.0); EOSINOPHILS % (AUTO) 0.1 % (0.0-4.0); HEMATOCRIT 22.7 % (36-48); HEMOGLOBIN 8.1 g/dL (12.0-16.0); LYMPHOCYTES # (AUTO) 0.4 K/uL (1.0-5.5); LYMPHOCYTES % (AUTO) 6.1 % (20.5-51.5); MEAN CORPUSCULAR HEMOGLOBIN 32 pg (27-31); MEAN CORPUSCULAR HGB CONC 35 % (32-36); MEAN CORPUSCULAR VOLUME 91 fL (79.0-98.0); MONOCYTES # (AUTO) 0.4 K/uL (0.0-1.0); MONOCYTES % (AUTO) 6.5 % (1.7-9.3); NEUTROPHILS # (AUTO) 5.5 K/uL (1.8-7.7); NEUTROPHILS % (AUTO) 86.9 % (40.0-70.0); PLATELET COUNT (AUTO) 122 K/uL (130-430); RED CELL DISTRIBUTION WIDTH 14.9 % (9.0-15.0); WHITE BLOOD COUNT (AUTO) 6.3 K/uL (4.8-10.8)
[2022-04-30 04:07] LABS: ANION GAP 13 (5-15); CALCIUM 8.6 mg/dL (8.4-11.0); CHLORIDE 89 mmol/L (98-107); CREATININE 2.48 mg/dL (0.55-1.30); GLUCOSE 166 mg/dL (70-99); POTASSIUM 3.9 mmol/L (3.5-5.1); SODIUM SERUM 123 mmol/L (136-145); UREA NITROGEN, BLOOD 30 mg/dL (8-21)
[2022-04-30 04:15] LABS: ALANINE AMINOTRANSFERASE 9 U/L (12-78); ALBUMIN 3.2 g/dL (3.4-4.8); ASPARTATE AMINOTRANSFERASE 10 U/L (10-37); TOTAL BILIRUBIN 0.6 mg/dL (0.0-1.0)
[2022-04-30 04:25] LABS: GFR AFRICAN AMERICAN 25 mL/min (>90)
[2022-04-30] MEDS ORDERED: NACL 0.9% 1,000 ML IV ONE ×2 (05:45→19:15)
[2022-04-30] MEDS ORDERED: D5NS 1,000 ML IV ONE (06:15)
[2022-04-30] MEDS ORDERED: PRED5TAB PO (08:51)
[2022-04-30] MEDS ORDERED: SITA100T11 PO (08:51)
[2022-04-30] MEDS ORDERED: TACR1CAP2 PO ×2 (08:51)
[2022-04-30] MEDS ORDERED: FERR236T3 PO (08:51)
[2022-04-30] MEDS ORDERED: VITD400 PO (08:51)
[2022-04-30] MEDS ORDERED: PANT20TA2 PO (08:51)
[2022-04-30] MEDS ORDERED: METO-442 PO (08:51)
[2022-04-30] MEDS ORDERED: CEL250 PO (08:51)
[2022-04-30] MEDS ORDERED: NALOXONE HCL 0.4 MG/ML AMP (NARCAN) IVP PRN ×2 (09:15)
[2022-04-30] MEDS ORDERED: ACETAMINOPHEN 325 MG TABLET PO PRN (09:15)
[2022-04-30] MEDS ORDERED: HYDROcodone/ACETAMIN 5-325 MG TAB (NORCO/ VICODIN) PO PRN (09:15)
[2022-04-30] MEDS ORDERED: ONDANSETRON HCL 4 MG/2 ML VIAL IVP PRN ×2 (09:15→20:15)
[2022-04-30 10:56] LABS: BILIRUBIN,URINE NEGATIVE (NEGATIVE); BLOOD, URINE 1+ (NEGATIVE); CLARITY/URINE CLEAR (CLEAR); COLOR,URINE YELLOW (YELLOW); GLUCOSE,URINE NEGATIVE (NEGATIVE); KETONES,URINE 1+ (NEGATIVE); LEUKOCYTE ESTERASE ,URINE NEGATIVE (NEGATIVE); NITRITE, URINE NEGATIVE (NEGATIVE); PH,URINE 5.5 (5.0-8.0); PROTEIN URINE 1+ (NEGATIVE); UROBILINOGEN,URINE 0.2 (0.2-1.0)
[2022-04-30 11:04] LABS: BACTERIA,URINE RARE /HPF (None Seen); MUCUS,URINE 1+ /LPF (None Seen); RBC,URINE 0-3 /HPF (0-3); WBC,URINE 0-3 /HPF (0-3)
[2022-04-30 14:43] LABS: CREATININE 2.27 mg/dL (0.55-1.30); POTASSIUM 3.8 mmol/L (3.5-5.1)
[2022-04-30 14:58] LABS: CALCIUM 7.7 mg/dL (8.4-11.0)
[2022-04-30 18:53] LABS: HEMATOCRIT 18.5 % (36-48); HEMOGLOBIN 6.2 g/dL (12.0-16.0)
[2022-04-30] MEDS ORDERED: LORATADINE 10 MG TABLET PO ONE (19:30)
[2022-04-30] MEDS: MEROPENEM 1 GM in NS 100 ML IV SCH (20:00)
[2022-04-30] MEDS: NACL 0.9% 1,000 ML IV SCH (20:56)
[2022-04-30] MEDS: mycophenolate mofetiL 250 MG CAPSULE PO SCH (20:56)
[2022-04-30] MEDS ORDERED: TACROLIMUS ANHYDROUS 1 MG CAPSULE (PROGRAF) PO SCH (21:00)
[2022-04-30] MEDS ORDERED: MEROPENEM 1 GM VIAL IV ONE (21:28)
[2022-04-30] MEDS: METOPROLOL TARTRATE 50 MG TABLET PO SCH (21:41)
[2022-05-01] VITALS (22 sets, daily range): BP systolic 117–174
[2022-05-01] MEDS: NACL 0.9% 1,000 ML IV SCH ×4 (02:05→20:06)
[2022-05-01 06:21] LABS: BASOPHILS % (AUTO) 0.8 % (0.0-2.0); EOSINOPHILS % (AUTO) 1.3 % (0.0-4.0); LYMPHOCYTES # (AUTO) 0.4 K/uL (1.0-5.5); MEAN CORPUSCULAR HEMOGLOBIN 32 pg (27-31); MEAN CORPUSCULAR HGB CONC 35 % (32-36); MEAN CORPUSCULAR VOLUME 92 fL (79.0-98.0); MONOCYTES # (AUTO) 0.2 K/uL (0.0-1.0); MONOCYTES % (AUTO) 6.7 % (1.7-9.3); NEUTROPHILS % (AUTO) 77.2 % (40.0-70.0); PLATELET COUNT (AUTO) 67 K/uL (130-430); RED CELL DISTRIBUTION WIDTH 15.2 % (9.0-15.0); WHITE BLOOD COUNT (AUTO) 2.6 K/uL (4.8-10.8)
[2022-05-01 07:06] LABS: RED BLOOD CELL COUNT(AUTO) 1.64 MIL/uL (4.2-6.2)
[2022-05-01 07:07] LABS: HEMOGLOBIN 5.2 g/dL (12.0-16.0)
[2022-05-01 07:08] LABS: HEMATOCRIT 15.1 % (36-48)
[2022-05-01 07:54] LABS: ALANINE AMINOTRANSFERASE 6 U/L (12-78); ANION GAP 11 (5-15); ASPARTATE AMINOTRANSFERASE 11 U/L (10-37); CHLORIDE 100 mmol/L (98-107); CREATININE 2.02 mg/dL (0.55-1.30); GLUCOSE 123 mg/dL (70-99); PHOSPHORUS 2.5 mg/dL (2.7-4.5); POTASSIUM 3.2 mmol/L (3.5-5.1); SODIUM SERUM 129 mmol/L (136-145); TOTAL BILIRUBIN 0.2 mg/dL (0.0-1.0); UREA NITROGEN, BLOOD 24 mg/dL (8-21)
[2022-05-01 07:58] LABS: GFR AFRICAN AMERICAN 32 mL/min (>90)
[2022-05-01 07:59] LABS: CALCIUM 6.5 mg/dL (8.4-11.0)
[2022-05-01] MEDS ORDERED: TACROLIMUS ANHYDROUS 1 MG CAPSULE (PROGRAF) PO SCH (09:00)
[2022-05-01] MEDS: METOPROLOL TARTRATE 50 MG TABLET PO SCH ×2 (09:00→20:00)
[2022-05-01] MEDS ORDERED: MAGNESIUM SULFATE IN WATER 100 ML IV ONE (09:15)
[2022-05-01] MEDS: MEROPENEM 1 GM in NS 100 ML IV SCH ×2 (09:26→19:59)
[2022-05-01] MEDS: CHOLECALCIFEROL (VITAMIN D-3) 400 UNIT TABLET PO SCH (09:29)
[2022-05-01] MEDS: predniSONE 5 MG TABLET PO SCH (09:29)
[2022-05-01] MEDS: PANTOPRAZOLE SODIUM 40 MG TAB PO SCH (09:29)
[2022-05-01] MEDS ORDERED: CALCIUM GLUCONATE 2 GM in NS 100 ML IV ONE (09:30)
[2022-05-01] MEDS ORDERED: K PHOS 15 MM in NS 250 ML IV ONE (09:30)
[2022-05-01] MEDS: mycophenolate mofetiL 250 MG CAPSULE PO SCH ×2 (09:33→19:59)
[2022-05-01 18:29] LABS: BASOPHILS % (AUTO) 0.5 % (0.0-2.0); EOSINOPHILS % (AUTO) 0.6 % (0.0-4.0); HEMATOCRIT 28.3 % (36-48); HEMOGLOBIN 9.3 g/dL (12.0-16.0); LYMPHOCYTES # (AUTO) 0.3 K/uL (1.0-5.5); LYMPHOCYTES % (AUTO) 6.1 % (20.5-51.5); MEAN CORPUSCULAR HEMOGLOBIN 30 pg (27-31); MEAN CORPUSCULAR HGB CONC 33 % (32-36); MEAN CORPUSCULAR VOLUME 92 fL (79.0-98.0); MONOCYTES # (AUTO) 0.2 K/uL (0.0-1.0); MONOCYTES % (AUTO) 4.6 % (1.7-9.3); NEUTROPHILS # (AUTO) 4.1 K/uL (1.8-7.7); NEUTROPHILS % (AUTO) 88.2 % (40.0-70.0); PLATELET COUNT (AUTO) 75 K/uL (130-430); RED BLOOD CELL COUNT(AUTO) 3.08 MIL/uL (4.2-6.2); RED CELL DISTRIBUTION WIDTH 15.9 % (9.0-15.0); WHITE BLOOD COUNT (AUTO) 4.6 K/uL (4.8-10.8)
[2022-05-01] MEDS: FERROUS GLUCONATE 324 MG TABLET PO SCH (18:40)
[2022-05-01] MEDS: TACROLIMUS ANHYDROUS 0.5 MG CAPSULE (PROGRAF) PO SCH (20:00)
[2022-05-01] MEDS: HYDROcodone/ACETAMIN 10-325 MG TAB PO PRN (21:22)
[2022-05-01 22:55] LABS: BASOPHILS % (AUTO) 0.3 % (0.0-2.0); EOSINOPHILS % (AUTO) 0.9 % (0.0-4.0); HEMATOCRIT 30.3 % (36-48); HEMOGLOBIN 9.7 g/dL (12.0-16.0); LYMPHOCYTES # (AUTO) 0.4 K/uL (1.0-5.5); LYMPHOCYTES % (AUTO) 7.9 % (20.5-51.5); MEAN CORPUSCULAR HEMOGLOBIN 31 pg (27-31); MEAN CORPUSCULAR HGB CONC 32 % (32-36); MEAN CORPUSCULAR VOLUME 96 fL (79.0-98.0); MONOCYTES # (AUTO) 0.3 K/uL (0.0-1.0); NEUTROPHILS # (AUTO) 4.1 K/uL (1.8-7.7); NEUTROPHILS % (AUTO) 84.9 % (40.0-70.0); RED BLOOD CELL COUNT(AUTO) 3.15 MIL/uL (4.2-6.2); RED CELL DISTRIBUTION WIDTH 15.9 % (9.0-15.0); WHITE BLOOD COUNT (AUTO) 4.8 K/uL (4.8-10.8)
[2022-05-01 23:32] LABS: PLATELET COUNT (AUTO) 84 K/uL (130-430)
[2022-05-02] VITALS (18 sets, daily range): BP systolic 100–167
[2022-05-02] MEDS: NACL 0.9% 1,000 ML IV SCH ×3 (04:52→15:23)
[2022-05-02 06:23] LABS: BASOPHILS % (AUTO) 0.6 % (0.0-2.0); EOSINOPHILS # (AUTO) 0.1 K/uL (0.0-0.4); EOSINOPHILS % (AUTO) 2.2 % (0.0-4.0); HEMATOCRIT 27.2 % (36-48); HEMOGLOBIN 9.5 g/dL (12.0-16.0); LYMPHOCYTES # (AUTO) 0.5 K/uL (1.0-5.5); MEAN CORPUSCULAR HEMOGLOBIN 32 pg (27-31); MEAN CORPUSCULAR HGB CONC 35 % (32-36); MEAN CORPUSCULAR VOLUME 90 fL (79.0-98.0); MONOCYTES # (AUTO) 0.2 K/uL (0.0-1.0); MONOCYTES % (AUTO) 4.6 % (1.7-9.3); NEUTROPHILS # (AUTO) 4.3 K/uL (1.8-7.7); NEUTROPHILS % (AUTO) 83.6 % (40.0-70.0); PLATELET COUNT (AUTO) 101 K/uL (130-430); RED BLOOD CELL COUNT(AUTO) 3.02 MIL/uL (4.2-6.2); RED CELL DISTRIBUTION WIDTH 15.8 % (9.0-15.0); RETICULOCYTE COUNT 1.3 % (0.5-1.5); WHITE BLOOD COUNT (AUTO) 5.1 K/uL (4.8-10.8)
[2022-05-02 06:30] LABS: C-REACTIVE PROTEIN QUANT 3.3 mg/dL (0-0.5); CALCIUM 7.1 mg/dL (8.4-11.0); CREATININE 1.82 mg/dL (0.55-1.30); PHOSPHORUS 3.9 mg/dL (2.7-4.5); POTASSIUM 3.4 mmol/L (3.5-5.1)
[2022-05-02 07:23] LABS: TOTAL IRON BIND. CAPACITY 100 ug/dL (250-450)
[2022-05-02 07:35] LABS: VANCOMYCIN,RANDOM 6.8 ug/mL
[2022-05-02 08:56] LABS: ERYTHROCYTE SEDIMENTATION RATE 54 MM/HR (0-20)
[2022-05-02] MEDS: MEROPENEM 1 GM in NS 100 ML IV SCH ×2 (09:54→21:15)
[2022-05-02] MEDS: PANTOPRAZOLE SODIUM 40 MG TAB PO SCH (09:54)
[2022-05-02] MEDS: TACROLIMUS ANHYDROUS 1 MG CAPSULE (PROGRAF) PO SCH (09:55)
[2022-05-02] MEDS: NAPH,MB-DB/K PH,MBDB 250 MG TAB PO SCH (09:55)
[2022-05-02] MEDS: mycophenolate mofetiL 250 MG CAPSULE PO SCH ×2 (09:56→21:15)
[2022-05-02] MEDS: CHOLECALCIFEROL (VITAMIN D-3) 400 UNIT TABLET PO SCH (09:56)
[2022-05-02] MEDS: predniSONE 5 MG TABLET PO SCH (09:56)
[2022-05-02] MEDS: METOPROLOL TARTRATE 50 MG TABLET PO SCH ×2 (09:57→21:16)
[2022-05-02] MEDS ORDERED: POTASSIUM CHLORIDE 20 MEQ TAB.PRT.SR PO ONE (10:00)
[2022-05-02] MEDS: FERROUS GLUCONATE 324 MG TABLET PO SCH ×2 (10:31→17:04)
[2022-05-02] MEDS: INSULIN REGULAR, HUMAN 100 UNITS/ML, 10 ML VIAL (humuLIN R) SUBCUT PRN ×2 (11:45→21:10)
[2022-05-02 14:10] LABS: BILIRUBIN,URINE NEGATIVE (NEGATIVE); CLARITY/URINE CLEAR (CLEAR); COLOR,URINE YELLOW (YELLOW); GLUCOSE,URINE NEGATIVE (NEGATIVE); KETONES,URINE NEGATIVE (NEGATIVE); LEUKOCYTE ESTERASE ,URINE NEGATIVE (NEGATIVE); NITRITE, URINE NEGATIVE (NEGATIVE); PROTEIN URINE NEGATIVE (NEGATIVE); UROBILINOGEN,URINE 0.2 (0.2-1.0)
[2022-05-02 14:12] LABS: BLOOD, URINE TRACE (NEGATIVE)
[2022-05-02 14:22] LABS: BACTERIA,URINE FEW /HPF (None Seen); WBC,URINE 0-3 /HPF (0-3)
[2022-05-02] MEDS ORDERED: MEROPENEM 1 GM VIAL IV ONE (21:03)
[2022-05-02] MEDS: TACROLIMUS ANHYDROUS 0.5 MG CAPSULE (PROGRAF) PO SCH (21:16)
[2022-05-03] VITALS: BP_SYST 154
[2022-05-03] MEDS: NACL 0.9% 1,000 ML IV SCH (01:31)
[2022-05-03 06:24] LABS: BASOPHILS % (AUTO) 0.5 % (0.0-2.0); EOSINOPHILS # (AUTO) 0.1 K/uL (0.0-0.4); EOSINOPHILS % (AUTO) 3.7 % (0.0-4.0); HEMOGLOBIN 8.5 g/dL (12.0-16.0); LYMPHOCYTES # (AUTO) 0.3 K/uL (1.0-5.5); LYMPHOCYTES % (AUTO) 8.2 % (20.5-51.5); MEAN CORPUSCULAR HEMOGLOBIN 31 pg (27-31); MEAN CORPUSCULAR HGB CONC 34 % (32-36); MEAN CORPUSCULAR VOLUME 91 fL (79.0-98.0); MONOCYTES # (AUTO) 0.3 K/uL (0.0-1.0); MONOCYTES % (AUTO) 7.3 % (1.7-9.3); NEUTROPHILS # (AUTO) 2.8 K/uL (1.8-7.7); NEUTROPHILS % (AUTO) 80.3 % (40.0-70.0); PLATELET COUNT (AUTO) 107 K/uL (130-430); RED BLOOD CELL COUNT(AUTO) 2.76 MIL/uL (4.2-6.2); RED CELL DISTRIBUTION WIDTH 15.8 % (9.0-15.0); WHITE BLOOD COUNT (AUTO) 3.5 K/uL (4.8-10.8)
[2022-05-03 06:50] LABS: C-REACTIVE PROTEIN QUANT 3.4 mg/dL (0-0.5); CALCIUM 7.5 mg/dL (8.4-11.0); CREATININE 1.76 mg/dL (0.55-1.30); PHOSPHORUS 3.2 mg/dL (2.7-4.5); POTASSIUM 3.4 mmol/L (3.5-5.1)
[2022-05-03] MEDS ORDERED: MIDAZOLAM HCL 5 MG/5 ML VIAL ONE (07:15)
[2022-05-03] MEDS ORDERED: BENZOCAINE 20% 0.5mL UD SPRAY MM ONE (07:15)
[2022-05-03] MEDS ORDERED: fentaNYL CITRATE/PF 100 MCG/2 ML AMP ONE (07:15)
[2022-05-03 08:00] VITALS: BP_SYST 127
[2022-05-03 08:00] LABS: ERYTHROCYTE SEDIMENTATION RATE 50 MM/HR (0-20)
[2022-05-03] MEDS: MEROPENEM 1 GM in NS 100 ML IV SCH ×2 (08:00→20:00)
[2022-05-03 08:06] LABS: FOLATE (FOLIC ACID) 5.6 ng/mL (>3.0)
[2022-05-03] MEDS ORDERED: ONDANSETRON HCL 4 MG/2 ML VIAL ONE (08:22)
[2022-05-03] MEDS: predniSONE 5 MG TABLET PO SCH (09:47)
[2022-05-03] MEDS: FERROUS GLUCONATE 324 MG TABLET PO SCH ×2 (09:47→18:37)
[2022-05-03] MEDS: NAPH,MB-DB/K PH,MBDB 250 MG TAB PO SCH (09:47)
[2022-05-03] MEDS: PANTOPRAZOLE SODIUM 40 MG TAB PO SCH (09:48)
[2022-05-03] MEDS: METOPROLOL TARTRATE 50 MG TABLET PO SCH ×2 (09:48→21:00)
[2022-05-03 12:02] LABS: EBV AB VCA, IgG >600.0 U/mL (0.0-17.9)
[2022-05-03 12:03] LABS: EBV AB VCA, IgM >160.0 U/mL (0.0-35.9)
[2022-05-03] MEDS: TACROLIMUS ANHYDROUS 1 MG CAPSULE (PROGRAF) PO SCH (12:10)
[2022-05-03] MEDS: mycophenolate mofetiL 250 MG CAPSULE PO SCH ×2 (12:11→22:08)
[2022-05-03] MEDS: CHOLECALCIFEROL (VITAMIN D-3) 400 UNIT TABLET PO SCH (12:11)
[2022-05-03] MEDS: NORMAL SALINE 5 ML DISP.SYRIN IVF SCH ×2 (14:05→22:00)
[2022-05-03 16:00] VITALS: BP_SYST 125
[2022-05-03] MEDS: INSULIN REGULAR, HUMAN 100 UNITS/ML, 10 ML VIAL (humuLIN R) SUBCUT PRN (16:59)
[2022-05-03 20:00] VITALS: BP_SYST 155
[2022-05-03] MEDS: TACROLIMUS ANHYDROUS 0.5 MG CAPSULE (PROGRAF) PO SCH (22:08)
[2022-05-04 02:07] LABS: CMV, IgM <30.0 AU/mL (0.0-29.9)
[2022-05-04] MEDS: NORMAL SALINE 5 ML DISP.SYRIN IVF SCH ×3 (06:00→22:00)
[2022-05-04 06:11] LABS: BASOPHILS % (AUTO) 0.6 % (0.0-2.0); EOSINOPHILS # (AUTO) 0.1 K/uL (0.0-0.4); HEMATOCRIT 22.8 % (36-48); HEMOGLOBIN 7.9 g/dL (12.0-16.0); LYMPHOCYTES # (AUTO) 0.4 K/uL (1.0-5.5); LYMPHOCYTES % (AUTO) 14.5 % (20.5-51.5); MEAN CORPUSCULAR HEMOGLOBIN 31 pg (27-31); MEAN CORPUSCULAR HGB CONC 35 % (32-36); MONOCYTES # (AUTO) 0.3 K/uL (0.0-1.0); MONOCYTES % (AUTO) 9.5 % (1.7-9.3); NEUTROPHILS # (AUTO) 1.9 K/uL (1.8-7.7); NEUTROPHILS % (AUTO) 71.4 % (40.0-70.0); PLATELET COUNT (AUTO) 110 K/uL (130-430); RED BLOOD CELL COUNT(AUTO) 2.55 MIL/uL (4.2-6.2); RED CELL DISTRIBUTION WIDTH 16.3 % (9.0-15.0); WHITE BLOOD COUNT (AUTO) 2.7 K/uL (4.8-10.8)
[2022-05-04 06:39] LABS: C-REACTIVE PROTEIN QUANT 1.9 mg/dL (0-0.5); CALCIUM 7.7 mg/dL (8.4-11.0); CREATININE 1.64 mg/dL (0.55-1.30); PHOSPHORUS 2.4 mg/dL (2.7-4.5)
[2022-05-04 07:39] LABS: POTASSIUM 2.8 mmol/L (3.5-5.1)
[2022-05-04] MEDS: NAPH,MB-DB/K PH,MBDB 250 MG TAB PO SCH (07:54)
[2022-05-04] MEDS ORDERED: KCL 40 mEq in 100 mL (PREMIX) 100 ML IV ONE (08:15)
[2022-05-04 08:17] LABS: MEAN CORPUSCULAR VOLUME 89 fL (79.0-98.0)
[2022-05-04] MEDS: KCL 20 mEq in 100 mL (PREMIX) 100 ML IV SCH ×2 (09:15→15:14)
[2022-05-04] MEDS ORDERED: TACR0.5C PO (09:59)
[2022-05-04] MEDS ORDERED: TACR1CAP2 PO (09:59)
[2022-05-04] MEDS ORDERED: NEUTPHOSP PO (09:59)
[2022-05-04] MEDS ORDERED: MAGNESIUM SULFATE 50 ML IV ONE (10:00)
[2022-05-04] MEDS ORDERED: CALCIUM GLUCONATE 2 GM in NS 100 ML IV ONE (10:00)
[2022-05-04] MEDS ORDERED: K PHOS 15 MM in NS 250 ML IV ONE (10:00)
[2022-05-04] MEDS: predniSONE 5 MG TABLET PO SCH (10:01)
[2022-05-04] MEDS: FERROUS GLUCONATE 324 MG TABLET PO SCH ×2 (10:01→17:51)
[2022-05-04] MEDS: CHOLECALCIFEROL (VITAMIN D-3) 400 UNIT TABLET PO SCH (10:01)
[2022-05-04] MEDS: PANTOPRAZOLE SODIUM 40 MG TAB PO SCH (10:01)
[2022-05-04] MEDS: MEROPENEM 1 GM in NS 100 ML IV SCH ×2 (10:02→20:00)
[2022-05-04] MEDS: TACROLIMUS ANHYDROUS 1 MG CAPSULE (PROGRAF) PO SCH (10:02)
[2022-05-04] MEDS: mycophenolate mofetiL 250 MG CAPSULE PO SCH ×2 (10:02→22:03)
[2022-05-04] MEDS: METOPROLOL TARTRATE 50 MG TABLET PO SCH ×2 (10:06→22:12)
[2022-05-04 10:17] VITALS: BP_SYST 125
[2022-05-04 11:06] LABS: HEPATITIS A AB, IgM Negative (Negative)
[2022-05-04 11:50] LABS: ERYTHROCYTE SEDIMENTATION RATE 42 MM/HR (0-20)
[2022-05-04] MEDS ORDERED: LEVO-62 PO (15:46)
[2022-05-04] MEDS ORDERED: FOLIC ACID 1 MG TABLET PO ONE (16:30)
[2022-05-04] MEDS ORDERED: EPOETIN ALFA-EPBX 3,000 UNITS/ML VIAL SUBCUT SCH (17:00)
[2022-05-04 17:59] VITALS: BP_SYST 144
[2022-05-04 20:00] VITALS: BP_SYST 127
[2022-05-04] MEDS: TACROLIMUS ANHYDROUS 0.5 MG CAPSULE (PROGRAF) PO SCH (22:02)
[2022-05-05] MEDS ORDERED: guaiFENesin 200 MG/10 ML UDC PO PRN (00:30)
[2022-05-05 00:57] VITALS: BP_SYST 145
[2022-05-05] MEDS: HYDROcodone/ACETAMIN 10-325 MG TAB PO PRN (01:23)
[2022-05-05 01:31] LABS: ALBUMIN 2.6 g/dL (3.4-4.8); CALCIUM 7.8 mg/dL (8.4-11.0); CREATININE 1.58 mg/dL (0.55-1.30); POTASSIUM 4.2 mmol/L (3.5-5.1); TOTAL BILIRUBIN 0.3 mg/dL (0.0-1.0)
[2022-05-05 04:00] VITALS: BP_SYST 137
[2022-05-05] MEDS: NORMAL SALINE 5 ML DISP.SYRIN IVF SCH ×2 (06:00→13:00)
[2022-05-05 08:00] VITALS: BP_SYST 142
[2022-05-05] MEDS ORDERED: FOLIC ACID 1 MG TABLET PO SCH (09:00)
[2022-05-05 09:01] LABS: ALBUMIN 2.2 g/dL (3.4-4.8); C-REACTIVE PROTEIN QUANT 1.7 mg/dL (0-0.5); CALCIUM 7.6 mg/dL (8.4-11.0); CREATININE 1.72 mg/dL (0.55-1.30); PHOSPHORUS 3.5 mg/dL (2.7-4.5); POTASSIUM 4.1 mmol/L (3.5-5.1); TOTAL BILIRUBIN 0.4 mg/dL (0.0-1.0)
[2022-05-05 09:07] LABS: TACROLIMUS (FK506) 3.9 ng/mL (2.0-20.0)
[2022-05-05 09:19] LABS: BASOPHILS # (AUTO) 0.1 K/uL (0.0-0.2); BASOPHILS % (AUTO) 3.6 % (0.0-2.0); EOSINOPHILS # (AUTO) 0.1 K/uL (0.0-0.4); EOSINOPHILS % (AUTO) 2.9 % (0.0-4.0); HEMATOCRIT 22.9 % (36-48); HEMOGLOBIN 7.8 g/dL (12.0-16.0); LYMPHOCYTES # (AUTO) 0.3 K/uL (1.0-5.5); LYMPHOCYTES % (AUTO) 10.2 % (20.5-51.5); MEAN CORPUSCULAR HEMOGLOBIN 31 pg (27-31); MEAN CORPUSCULAR HGB CONC 34 % (32-36); MEAN CORPUSCULAR VOLUME 91 fL (79.0-98.0); MONOCYTES # (AUTO) 0.2 K/uL (0.0-1.0); MONOCYTES % (AUTO) 9.4 % (1.7-9.3); NEUTROPHILS # (AUTO) 1.9 K/uL (1.8-7.7); NEUTROPHILS % (AUTO) 73.9 % (40.0-70.0); PLATELET COUNT (AUTO) 93 K/uL (130-430); RED BLOOD CELL COUNT(AUTO) 2.53 MIL/uL (4.2-6.2); RED CELL DISTRIBUTION WIDTH 16.5 % (9.0-15.0); WHITE BLOOD COUNT (AUTO) 2.6 K/uL (4.8-10.8)
[2022-05-05 09:45] LABS: CMV, IgG >10.00 U/mL (0.00-0.59)
[2022-05-05] MEDS: FERROUS GLUCONATE 324 MG TABLET PO SCH (10:31)
[2022-05-05] MEDS: CHOLECALCIFEROL (VITAMIN D-3) 400 UNIT TABLET PO SCH (10:32)
[2022-05-05] MEDS: mycophenolate mofetiL 250 MG CAPSULE PO SCH (10:32)
[2022-05-05] MEDS: TACROLIMUS ANHYDROUS 1 MG CAPSULE (PROGRAF) PO SCH (10:33)
[2022-05-05 10:35] LABS: ERYTHROCYTE SEDIMENTATION RATE 38 MM/HR (0-20)
[2022-05-05] MEDS: predniSONE 5 MG TABLET PO SCH (10:39)
[2022-05-05] MEDS: METOPROLOL TARTRATE 50 MG TABLET PO SCH (10:39)
[2022-05-05] MEDS: PANTOPRAZOLE SODIUM 40 MG TAB PO SCH (10:40)
[2022-05-05] MEDS: NAPH,MB-DB/K PH,MBDB 250 MG TAB PO SCH (10:41)
[2022-05-05] MEDS: MEROPENEM 1 GM in NS 100 ML IV SCH (11:10)
[2022-05-05 12:07] VITALS: BP_SYST 139
[2022-05-05 16:00] VITALS: BP_SYST 141
[2022-05-05 16:01] VITALS: BP_SYST 133
== END 2022-05-05 17:05 | disposition home or self-care (01) | DRG 871 ==
LOC: SED 02:18 → STU 06:13 → SIC 20:04 → SMU 05-02 18:18 → STU 05-04 11:05
PROVIDERS: ADMIT Preventive Medicine Preventive Medicine/Occupational Environmental Medicine; ATTEND Preventive Medicine Preventive Medicine/Occupational Environmental Medicine
PROC: 30233N1 Transfusion of Nonautologous Red Blood Cells into Peripheral Vein, Percutaneous Approach (ICD-10-PCS; 2022-05-01)
PROC: 0DB68ZX Excision of Stomach, Via Natural or Artificial Opening Endoscopic, Diagnostic (ICD-10-PCS; 2022-05-03)
PROC: 0DB98ZX Excision of Duodenum, Via Natural or Artificial Opening Endoscopic, Diagnostic (ICD-10-PCS; principal; 2022-05-03 08:00)
DX: A41.9 Sepsis, unspecified organism (principal); E43 Unspecified severe protein-calorie malnutrition; G93.41 Metabolic encephalopathy; R65.21 Severe sepsis with septic shock; N17.0 Acute kidney failure with tubular necrosis; E87.1 Hypo-osmolality and hyponatremia; E87.2 Acidosis; N12 Tubulo-interstitial nephritis, not specified as acute or chronic; D61.818 Other pancytopenia; T86.13 Kidney transplant infection; Z94.4 Liver transplant status; T86.19 Other complication of kidney transplant; R50.9 Fever, unspecified; Z20.822 Contact with and (suspected) exposure to COVID-19; E78.5 Hyperlipidemia, unspecified; E11.65 Type 2 diabetes mellitus with hyperglycemia; D69.6 Thrombocytopenia, unspecified; I13.10 Hypertensive heart and chronic kidney disease without heart failure, with stage 1 through stage 4 chronic kidney disease, or unspecified chronic kidney disease; N18.9 Chronic kidney disease, unspecified; E11.22 Type 2 diabetes mellitus with diabetic chronic kidney disease; D64.9 Anemia, unspecified; R62.7 Adult failure to thrive; E83.52 Hypercalcemia; E87.6 Hypokalemia; E83.51 Hypocalcemia; E88.09 Other disorders of plasma-protein metabolism, not elsewhere classified; E83.42 Hypomagnesemia; E83.39 Other disorders of phosphorus metabolism; K29.70 Gastritis, unspecified, without bleeding; Z68.25 Body mass index [BMI] 25.0-25.9, adult; Z88.2 Allergy status to sulfonamides; Y83.0 Surgical operation with transplant of whole organ as the cause of abnormal reaction of the patient, or of later complication, without mention of misadventure at the time of the procedure
CPT/HCPCS: 36415; 36430; 43239; 70450-TC; 71045; 71250-TC; 76376; 76770; 80048; 80053; 80074; 80197; 80202; 81000; 82140; 82607; 82728; 82746; 82962; 83540; 83550; 83605; 83735; 84100; 84484; 85018; 85025; 85044; 85651-TC; 86140; 86644; 86645; 86665; 86870; 86886; 86900; 86901; 86920; 86945-TC; 87040; 87081; 87086; 87497; 88305; 88312; 88313; 93005; 93880; 96365; 96368; 99291; G0378; J0456; J0610; J0692; J1815; J2185; J2250; J2405; J2765; J3010; J3370; J3475; J3480; J7050; J7507; J7512; J7517; P9021; Q5106

== ENCOUNTER 2023-01-16 12:44 | Inpatient (IN) | payer OTHER, MEDICAID ==
[~2023-01-16] VITALS: Ht 157.5 cm; Wt 53.6 kg
[~2023-01-16 12:44] MED LIST changes: +CEL250 PO; +FERR236T3 PO; -FURO-149 PO; -HYDR-3917 PO; +LEVO-62 PO; +METO-442 PO; -MIDO5TAB4 PO; +NEUTPHOSP PO; +PANT20TA2 PO; +PRED5TAB PO; +SITA100T11 PO; +TACR0.5C PO; +TACR1CAP2 PO; +VITD400 PO
[2023-01-16 12:47] VITALS: BP_SYST 147
[2023-01-16] MEDS ORDERED: MORPHINE 4 MG INJ. 4 MG/ML VIAL IM ONE (13:00)
[2023-01-16] MEDS ORDERED: KETAMINE 30 MG/3 ML SYRINGE IM ONE (13:15)
[2023-01-16] MEDS ORDERED: KETAMINE HCL IN 0.9 % NACL 50 MG/5 ML SYRINGE IVP ONE (13:15)
[2023-01-16] MEDS ORDERED: KETAMINE HCL IN 0.9 % NACL 50 MG/5 ML SYRINGE IV ONE (13:15)
[2023-01-16] MEDS ORDERED: fentaNYL CITRATE/PF 100 MCG/2 ML AMP IVP ONE (13:45)
[2023-01-16 14:36] LABS: INR 1.1 (0.8-1.2)
[2023-01-16 14:37] LABS: BASOPHILS % (AUTO) 0.6 % (0.0-2.0); EOSINOPHILS % (AUTO) 0.9 % (0.0-4.0); HEMATOCRIT 30.6 % (36-48); HEMOGLOBIN 10.8 g/dL (12.0-16.0); LYMPHOCYTES # (AUTO) 1.6 K/uL (1.0-5.5); LYMPHOCYTES % (AUTO) 41.2 % (20.5-51.5); MEAN CORPUSCULAR HEMOGLOBIN 38 pg (27-31); MEAN CORPUSCULAR HGB CONC 35 % (32-36); MEAN CORPUSCULAR VOLUME 110 fL (79.0-98.0); MONOCYTES # (AUTO) 0.3 K/uL (0.0-1.0); MONOCYTES % (AUTO) 7.3 % (1.7-9.3); NEUTROPHILS # (AUTO) 1.9 K/uL (1.8-7.7); PLATELET COUNT (AUTO) 87 K/uL (130-430); RED CELL DISTRIBUTION WIDTH 14.9 % (9.0-15.0); WHITE BLOOD COUNT (AUTO) 3.8 K/uL (4.8-10.8)
[2023-01-16 14:46] LABS: ALBUMIN 3.3 g/dL (3.4-4.8); CALCIUM 8.5 mg/dL (8.4-11.0); CREATININE 1.27 mg/dL (0.55-1.30); TOTAL BILIRUBIN 0.6 mg/dL (0.0-1.0)
[2023-01-16 17:59] VITALS: BP_SYST 145
[2023-01-16] MEDS ORDERED: IBUPROFEN 600 MG TABLET PO PRN (19:15)
[2023-01-16] MEDS ORDERED: NALOXONE HCL 0.4 MG/ML AMP (NARCAN) IVP PRN ×2 (19:30)
[2023-01-16] MEDS ORDERED: ONDANSETRON HCL 4 MG/2 ML VIAL IVP PRN (19:30)
[2023-01-16] MEDS ORDERED: LORazepam 2 MG/ML VIAL IVP PRN (19:30)
[2023-01-16] MEDS ORDERED: ACETAMINOPHEN 325 MG TABLET PO PRN ×2 (19:30→20:00)
[2023-01-16] MEDS ORDERED: INSULIN REGULAR, HUMAN 100 UNITS/ML, 3 ML VIAL (humuLIN R) SUBCUT PRN (19:45)
[2023-01-16 20:09] VITALS: BP_SYST 146
[2023-01-16] MEDS: HYDROcodone/ACETAMIN 10-325 MG TAB PO PRN (20:27)
[2023-01-16] MEDS: METOPROLOL TARTRATE 50 MG TABLET PO SCH (20:49)
[2023-01-16] MEDS ORDERED: NON-FORMULARY MEDICATION (Ferrous Gluconate (Iron) 65 MG) PO SCH (21:00)
[2023-01-16] MEDS: mycophenolate mofetiL 250 MG CAPSULE PO SCH (21:31)
[2023-01-16] MEDS: TACROLIMUS ANHYDROUS 0.5 MG CAPSULE (PROGRAF) PO SCH (21:32)
[2023-01-16] MEDS: FERROUS GLUCONATE 324 MG TABLET PO SCH (21:38)
[2023-01-16] MEDS: NORMAL SALINE 5 ML DISP.SYRIN IVF SCH (21:39)
[2023-01-16] MEDS ORDERED: NORMAL SALINE 5 ML DISP.SYRIN IVF SCH (22:00)
[2023-01-17] MEDS: NORMAL SALINE 5 ML DISP.SYRIN IVF SCH ×3 (00:11→21:11)
[2023-01-17 01:49] VITALS: BP_SYST 156
[2023-01-17 05:28] LABS: BASOPHILS % (AUTO) 0.7 % (0.0-2.0); EOSINOPHILS % (AUTO) 0.9 % (0.0-4.0); HEMATOCRIT 26.9 % (36-48); HEMOGLOBIN 9.5 g/dL (12.0-16.0); LYMPHOCYTES # (AUTO) 0.4 K/uL (1.0-5.5); LYMPHOCYTES % (AUTO) 18.4 % (20.5-51.5); MEAN CORPUSCULAR HEMOGLOBIN 38 pg (27-31); MEAN CORPUSCULAR HGB CONC 35 % (32-36); MEAN CORPUSCULAR VOLUME 108 fL (79.0-98.0); MONOCYTES # (AUTO) 0.2 K/uL (0.0-1.0); MONOCYTES % (AUTO) 9.4 % (1.7-9.3); NEUTROPHILS # (AUTO) 1.7 K/uL (1.8-7.7); NEUTROPHILS % (AUTO) 70.6 % (40.0-70.0); PLATELET COUNT (AUTO) 70 K/uL (130-430); RED BLOOD CELL COUNT(AUTO) 2.48 MIL/uL (4.2-6.2); RED CELL DISTRIBUTION WIDTH 15.1 % (9.0-15.0); WHITE BLOOD COUNT (AUTO) 2.4 K/uL (4.8-10.8)
[2023-01-17 05:59] LABS: ALBUMIN 3.1 g/dL (3.4-4.8); CREATININE 1.22 mg/dL (0.55-1.30); PHOSPHORUS 4.4 mg/dL (2.7-4.5); TOTAL BILIRUBIN 1.1 mg/dL (0.0-1.0)
[2023-01-17] MEDS: PANTOPRAZOLE SODIUM 40 MG TAB PO SCH (09:14)
[2023-01-17] MEDS: CHOLECALCIFEROL (VITAMIN D-3) 400 UNIT TABLET PO SCH (09:15)
[2023-01-17] MEDS: predniSONE 5 MG TABLET PO SCH (09:15)
[2023-01-17] MEDS: mycophenolate mofetiL 250 MG CAPSULE PO SCH ×2 (09:16→21:10)
[2023-01-17] MEDS: METOPROLOL TARTRATE 50 MG TABLET PO SCH ×2 (09:16→21:10)
[2023-01-17] MEDS: TACROLIMUS ANHYDROUS 1 MG CAPSULE (PROGRAF) PO SCH (09:17)
[2023-01-17] MEDS: FERROUS GLUCONATE 324 MG TABLET PO SCH ×2 (09:29→21:10)
[2023-01-17] MEDS: NAPH,MB-DB/K PH,MBDB 250 MG TAB PO SCH (09:29)
[2023-01-17] MEDS ORDERED: levoFLOXacin 500 MG TABLET PO SCH (10:00)
[2023-01-17] MEDS: HYDROcodone/ACETAMIN 5-325 MG TAB (NORCO/ VICODIN) PO PRN ×3 (10:21→21:11)
[2023-01-17 11:51] VITALS: BP_SYST 152
[2023-01-17 16:14] VITALS: BP_SYST 148
[2023-01-17 20:00] VITALS: BP_SYST 159
[2023-01-17] MEDS: TACROLIMUS ANHYDROUS 0.5 MG CAPSULE (PROGRAF) PO SCH (21:11)
[2023-01-18] MEDS: HYDROcodone/ACETAMIN 5-325 MG TAB (NORCO/ VICODIN) PO PRN ×2 (01:31→05:48)
[2023-01-18 01:53] VITALS: BP_SYST 171
[2023-01-18 05:15] LABS: BASOPHILS % (AUTO) 0.2 % (0.0-2.0); EOSINOPHILS % (AUTO) 0.6 % (0.0-4.0); HEMATOCRIT 23.8 % (36-48); HEMOGLOBIN 8.3 g/dL (12.0-16.0); LYMPHOCYTES # (AUTO) 0.4 K/uL (1.0-5.5); MEAN CORPUSCULAR HEMOGLOBIN 38 pg (27-31); MEAN CORPUSCULAR HGB CONC 35 % (32-36); MEAN CORPUSCULAR VOLUME 109 fL (79.0-98.0); MONOCYTES # (AUTO) 0.2 K/uL (0.0-1.0); MONOCYTES % (AUTO) 9.2 % (1.7-9.3); NEUTROPHILS # (AUTO) 1.4 K/uL (1.8-7.7); PLATELET COUNT (AUTO) 52 K/uL (130-430); RED BLOOD CELL COUNT(AUTO) 2.18 MIL/uL (4.2-6.2); RED CELL DISTRIBUTION WIDTH 14.4 % (9.0-15.0)
[2023-01-18 05:42] LABS: BILIRUBIN,DIRECT 0.4 mg/dL (0.0-0.3); CREATININE 1.79 mg/dL (0.55-1.30); PHOSPHORUS 4.4 mg/dL (2.7-4.5)
[2023-01-18] MEDS: NORMAL SALINE 5 ML DISP.SYRIN IVF SCH ×2 (05:48→13:58)
[2023-01-18 08:23] VITALS: BP_SYST 146
[2023-01-18] MEDS: predniSONE 5 MG TABLET PO SCH (08:25)
[2023-01-18] MEDS: TACROLIMUS ANHYDROUS 1 MG CAPSULE (PROGRAF) PO SCH (08:26)
[2023-01-18] MEDS: FERROUS GLUCONATE 324 MG TABLET PO SCH ×2 (08:26→20:30)
[2023-01-18] MEDS: PANTOPRAZOLE SODIUM 40 MG TAB PO SCH (08:26)
[2023-01-18] MEDS: mycophenolate mofetiL 250 MG CAPSULE PO SCH ×2 (08:26→20:30)
[2023-01-18] MEDS: CHOLECALCIFEROL (VITAMIN D-3) 400 UNIT TABLET PO SCH (08:26)
[2023-01-18] MEDS: NAPH,MB-DB/K PH,MBDB 250 MG TAB PO SCH (08:26)
[2023-01-18] MEDS: METOPROLOL TARTRATE 50 MG TABLET PO SCH ×2 (08:27→20:30)
[2023-01-18] MEDS: HYDROcodone/ACETAMIN 10-325 MG TAB PO PRN ×3 (09:50→20:29)
[2023-01-18] MEDS: NACL 0.9% 1,000 ML IV SCH (11:04)
[2023-01-18 11:27] VITALS: BP_SYST 142
[2023-01-18 15:20] VITALS: BP_SYST 144
[2023-01-18 20:00] VITALS: BP_SYST 135
[2023-01-18] MEDS: TACROLIMUS ANHYDROUS 0.5 MG CAPSULE (PROGRAF) PO SCH (20:31)
[2023-01-19] VITALS: BP_SYST 132
[2023-01-19] MEDS: NACL 0.9% 1,000 ML IV SCH ×2 (00:42→06:45)
[2023-01-19] MEDS: NORMAL SALINE 5 ML DISP.SYRIN IVF SCH ×3 (00:42→13:25)
[2023-01-19] MEDS: HYDROcodone/ACETAMIN 10-325 MG TAB PO PRN ×2 (05:55→13:35)
[2023-01-19 05:56] LABS: BASOPHILS % (AUTO) 0.4 % (0.0-2.0); EOSINOPHILS % (AUTO) 0.6 % (0.0-4.0); HEMATOCRIT 23.5 % (36-48); LYMPHOCYTES # (AUTO) 0.4 K/uL (1.0-5.5); LYMPHOCYTES % (AUTO) 20.1 % (20.5-51.5); MEAN CORPUSCULAR HEMOGLOBIN 37 pg (27-31); MEAN CORPUSCULAR HGB CONC 34 % (32-36); MEAN CORPUSCULAR VOLUME 110 fL (79.0-98.0); MONOCYTES # (AUTO) 0.1 K/uL (0.0-1.0); MONOCYTES % (AUTO) 7.4 % (1.7-9.3); NEUTROPHILS # (AUTO) 1.3 K/uL (1.8-7.7); NEUTROPHILS % (AUTO) 71.5 % (40.0-70.0); RED BLOOD CELL COUNT(AUTO) 2.14 MIL/uL (4.2-6.2); RED CELL DISTRIBUTION WIDTH 14.7 % (9.0-15.0)
[2023-01-19 06:08] LABS: ALBUMIN 2.9 g/dL (3.4-4.8); BILIRUBIN,DIRECT 0.4 mg/dL (0.0-0.3); CALCIUM 7.3 mg/dL (8.4-11.0); CREATININE 1.87 mg/dL (0.55-1.30); PHOSPHORUS 3.9 mg/dL (2.7-4.5); TOTAL BILIRUBIN 0.8 mg/dL (0.0-1.0)
[2023-01-19 06:19] LABS: PLATELET COUNT (AUTO) 48 K/uL (130-430); WHITE BLOOD COUNT (AUTO) 1.9 K/uL (4.8-10.8)
[2023-01-19 07:58] VITALS: BP_SYST 155
[2023-01-19] MEDS: NAPH,MB-DB/K PH,MBDB 250 MG TAB PO SCH (08:17)
[2023-01-19] MEDS: FERROUS GLUCONATE 324 MG TABLET PO SCH (08:17)
[2023-01-19] MEDS: METOPROLOL TARTRATE 50 MG TABLET PO SCH (08:18)
[2023-01-19] MEDS: TACROLIMUS ANHYDROUS 1 MG CAPSULE (PROGRAF) PO SCH (08:18)
[2023-01-19] MEDS: PANTOPRAZOLE SODIUM 40 MG TAB PO SCH (08:18)
[2023-01-19] MEDS: CHOLECALCIFEROL (VITAMIN D-3) 400 UNIT TABLET PO SCH (08:18)
[2023-01-19] MEDS: predniSONE 5 MG TABLET PO SCH (08:18)
[2023-01-19] MEDS: mycophenolate mofetiL 250 MG CAPSULE PO SCH (08:19)
[2023-01-19 12:06] LABS: FOLATE (FOLIC ACID) 2.8 ng/mL (>3.0)
[2023-01-19] MEDS ORDERED: LR 1,000 ML IV SCH (12:30)
[2023-01-19 14:21] LABS: BILIRUBIN,URINE NEGATIVE (NEGATIVE); BLOOD, URINE NEGATIVE (NEGATIVE); CLARITY/URINE CLEAR (CLEAR); COLOR,URINE YELLOW (YELLOW); GLUCOSE,URINE NEGATIVE (NEGATIVE); KETONES,URINE TRACE (NEGATIVE); LEUKOCYTE ESTERASE ,URINE NEGATIVE (NEGATIVE); NITRITE, URINE NEGATIVE (NEGATIVE); PROTEIN URINE NEGATIVE (NEGATIVE); UROBILINOGEN,URINE 0.2 (0.2-1.0)
[2023-01-19 17:53] VITALS: BP_SYST 138
[2023-01-19 17:54] VITALS: BP_SYST 138; BP_SYST 140
[2023-01-19 18:36] VITALS: BP_SYST 138
[2023-01-19 22:45] LABS: CHLORIDE,URINE RANDOM 66 mmol/L (55-125)
[2023-01-20 06:06] LABS: HEPATITIS A AB, IgM Negative (Negative)
[2023-01-25 11:42] LABS: HEPATITIS C VIRUS AB Negative <0.8 s/co (0.0-0.7)
== END 2023-01-19 19:10 | disposition home health service (06) | DRG 604 ==
LOC: SED 12:44 → SMU 15:41
PROVIDERS: ADMIT Preventive Medicine Preventive Medicine/Occupational Environmental Medicine; ATTEND Preventive Medicine Preventive Medicine/Occupational Environmental Medicine
DX: S40.021A Contusion of right upper arm, initial encounter (principal); E43 Unspecified severe protein-calorie malnutrition; N17.0 Acute kidney failure with tubular necrosis; D61.818 Other pancytopenia; E87.1 Hypo-osmolality and hyponatremia; Z94.4 Liver transplant status; Z94.0 Kidney transplant status; K76.6 Portal hypertension; D73.1 Hypersplenism; K70.10 Alcoholic hepatitis without ascites; K75.9 Inflammatory liver disease, unspecified; E83.52 Hypercalcemia; E83.42 Hypomagnesemia; E83.51 Hypocalcemia; W01.0XXA Fall on same level from slipping, tripping and stumbling without subsequent striking against object, initial encounter; E88.09 Other disorders of plasma-protein metabolism, not elsewhere classified; E11.65 Type 2 diabetes mellitus with hyperglycemia; K74.60 Unspecified cirrhosis of liver; D63.8 Anemia in other chronic diseases classified elsewhere; Z79.60 Long term (current) use of unspecified immunomodulators and immunosuppressants; Z88.2 Allergy status to sulfonamides; Z79.899 Other long term (current) drug therapy; Y93.89 Activity, other specified; Y92.89 Other specified places as the place of occurrence of the external cause; Y99.8 Other external cause status; Z68.21 Body mass index [BMI] 21.0-21.9, adult; I12.9 Hypertensive chronic kidney disease with stage 1 through stage 4 chronic kidney disease, or unspecified chronic kidney disease; E11.22 Type 2 diabetes mellitus with diabetic chronic kidney disease; N18.32 Chronic kidney disease, stage 3b
CPT/HCPCS: 36415; 73090; 73200-TC; 76376; 76770; 80048; 80053; 80074; 80076; 81003; 82140; 82435; 82570; 82607; 82728; 82746; 83735; 84100; 84302; 85025; 85044; 85610-TC; 85730-TC; 86803; 96374; 96375; 97110-GP; 97116-GP; 97530-GP; 99285; J1815; J2270; J2405; J3010; J7030; J7507; J7512; J7517

== ENCOUNTER 2024-03-24 21:12 | Emergency (ER) | payer OTHER ==
[~2024-03-24] VITALS: Ht 157.5 cm; Wt 41.7 kg
[~2024-03-24 21:12] MED LIST changes: -LEVO-62 PO; +NOR10 PO
[2024-03-24 21:23] VITALS: BP_SYST 146; PULSE 86; RESP 18; TEMP 96.7; O2SAT 99
[2024-03-24 23:08] LABS: BASOPHILS % (AUTO) 0.8 % (0.0-2.0); EOSINOPHILS # (AUTO) 0.2 K/uL (0.0-0.4); EOSINOPHILS % (AUTO) 7.5 % (0.0-4.0); HEMATOCRIT 30.9 % (36-48); HEMOGLOBIN 10.8 g/dL (12.0-16.0); LYMPHOCYTES # (AUTO) 0.7 K/uL (1.0-5.5); LYMPHOCYTES % (AUTO) 23.8 % (20.5-51.5); MEAN CORPUSCULAR HEMOGLOBIN 35 pg (27-31); MEAN CORPUSCULAR HGB CONC 35 % (32-36); MEAN CORPUSCULAR VOLUME 101 fL (79.0-98.0); MONOCYTES # (AUTO) 0.2 K/uL (0.0-1.0); NEUTROPHILS # (AUTO) 1.6 K/uL (1.8-7.7); NEUTROPHILS % (AUTO) 59.9 % (40.0-70.0); PLATELET COUNT (AUTO) 79 K/uL (130-430); RED BLOOD CELL COUNT(AUTO) 3.07 MIL/uL (4.2-6.2); RED CELL DISTRIBUTION WIDTH 14.1 % (9.0-15.0); WHITE BLOOD COUNT (AUTO) 2.7 K/uL (4.8-10.8)
[2024-03-24 23:47] LABS: ANION GAP 13 (5-15); CARBON DIOXIDE 25 mmol/L (23-29); CHLORIDE 96 mmol/L (98-107); CREATININE 1.62 mg/dL (0.55-1.30); GFR AFRICAN AMERICAN 41 mL/min (>90); GLUCOSE 118 mg/dL (74-106); POTASSIUM 4.5 mmol/L (3.5-5.1); SODIUM SERUM 134 mmol/L (136-145); UREA NITROGEN, BLOOD 24 mg/dL (8-21)
[2024-03-24 23:56] LABS: GFR NON AFRICAN-AMERICAN 34 mL/min (>90)
[2024-03-25 00:06] LABS: BILIRUBIN,URINE 2+ (NEGATIVE); BLOOD, URINE 1+ (NEGATIVE); CLARITY/URINE CLOUDY (CLEAR); COLOR,URINE YELLOW (YELLOW); GLUCOSE,URINE NEGATIVE (NEGATIVE); KETONES,URINE 1+ (NEGATIVE); LEUKOCYTE ESTERASE ,URINE 2+ (NEGATIVE); NITRITE, URINE NEGATIVE (NEGATIVE); PROTEIN URINE 2+ (NEGATIVE); UROBILINOGEN,URINE 0.2 (0.2-1.0)
[2024-03-25 00:52] LABS: BACTERIA,URINE MANY /HPF (None Seen); WBC,URINE 50-80 /HPF (0-3)
[2024-03-25] MEDS ORDERED: ACET-2634 PO (01:05)
[2024-03-25] MEDS ORDERED: TRAM50TA2 PO (01:05)
[2024-03-25] MEDS ORDERED: CEPH-548 PO (01:05)
[2024-03-25] MEDS: KETOROLAC TROMETHAMINE 30 MG VIAL IVP ONE (01:32)
[2024-03-25] MEDS: cefTRIAXone 1 GM in LIDOCAINE 1%, 20 ML MDV 2.1 ML IM ONE (01:33)
[2024-03-25 01:47] VITALS: BP_SYST 141; PULSE 90; RESP 20; TEMP 97.8; O2SAT 100
== END 2024-03-25 02:00 | disposition home or self-care (01) ==
LOC: SED 21:12
DX: R07.89 Other chest pain (principal); N39.0 Urinary tract infection, site not specified; I12.0 Hypertensive chronic kidney disease with stage 5 chronic kidney disease or end stage renal disease; E11.22 Type 2 diabetes mellitus with diabetic chronic kidney disease; N18.6 End stage renal disease; Z88.2 Allergy status to sulfonamides; Z79.899 Other long term (current) drug therapy; Z79.2 Long term (current) use of antibiotics
CPT/HCPCS: 99285; 71045; 80048; 81000; 81001; 85025; 87086; 84484; 36415; 93005; 96374; 96372; 81015; J0696; J1885; J2001